=== PATIENT | male | born 1965 | race Caucasian/White ===

== ENCOUNTER 2022-06-21 15:25 | Outpatient (CLI) | payer OTHER, MEDICAID, SELFPAY ==
--- NOTE | 2022-06-21 15:30 | MR_ITS ---
[address] [address] Phone:?[phone] Fax:?[phone] Referring Physician Information: Akanksha Sutton [address] [facility] [address] Phone:?[phone] Fax:?[phone] Patient:Jailyn Neal D.O.B:?1965 Sex:?Male Phone:?[phone] [facility] MRN:[id number] Exam Date:?06/21/2022 ? EXAM: MRI of the RIGHT SHOULDER, without contrast CLINICAL HISTORY: Right shoulder pain. History of acromial clavicular joint separation. Evaluate for rotator cuff tear. COMPARISONS: None available. TECHNICAL: MRI sequences of the right shoulder: Axials: PD, T2 Coronals: PD, STIR, T2 Sagittals: PD, T2?SEDATION: None CONTRAST: None FINDINGS: Bones: No fracture or suspicious bone marrow signal abnormality. Coracoacromial arch: Acromion: No os acromiale. Type I-II acromion. Acromiohumeral space: The bony distance is unremarkable. Coracohumeral space: The bony distance is unremarkable. Acromioclavicular joint: Marked degenerative changes with marked inferior osteophytosis/hypertrophy. Marked irregularity of the acromioclavicular ligament likely reflects sequela of chronic sprain/tear injury. There is chronic fracture deformity of the distal clavicle with an ununited fracture fragment. No substantial widening of the acromioclavicular joint currently. Coracoclavicular ligament: Irregularity of the coracoclavicular ligament and spurring of the distal clavicle and coracoid at the coracoclavicular ligament attachments are findings consistent with sequelae of chronic tear/sprain injury. No substantial superior subluxation of the distal clavicle currently. Rotator cuff muscles/tendons: Supraspinatus: 2.3 cm in AP dimension by 1.9 cm in transverse dimension near full-thickness bursal sided tear of the supraspinatus tendon contacts the cortical insertional surface and is superimposed upon mild supraspinatus tendinopathy. No atrophy of the supraspinatus muscle. Infraspinatus: Interstitial delamination and moderate tendinopathy of the infraspinatus tendon. No atrophy of the infraspinatus muscle. Teres minor: The teres minor tendon and muscle are intact. Subscapularis: Mild tendinopathy of the superior portion of the subscapularis tendon insertion best seen on sagittal series 9 image 12 and axial series 3.1 image 21. No atrophy of the subscapularis muscle. Labrum: Fraying and ill-defined tearing of the posterosuperior, inferior, and anteroinferior portions of the labrum. Proximal biceps tendon, long head and short heads: Slitlike split longitudinal intrasubstance/interstitial tear within the biceps labral anchor best seen on coronal series 4 images 11 and 12. Otherwise, the long head of the biceps tendon is intact. The short is intact. Glenohumeral joint: Trace glenohumeral joint effusion. 2.0 cm craniocaudad dimension by 0.7 cm in AP dimension area of grade 3 and 4 chondral loss over the anterior and anteroinferior portions of the glenoid with a couple of small associated degenerative subchondral cysts. No convincing evidence of capsular edema or thickening although evaluation is suboptimal because of lack of joint distention. Bursae: Subacromial/subdeltoid: No convincing subacromial bursal thickening/bursitis. Subcoracoid: No convincing subcoracoid bursal thickening/bursitis. IMPRESSION: 1. 2.3 x 1.9 cm near full-thickness bursal sided tear of the supraspinatus tendon contacts the cortical insertional surface and is superimposed upon mild supraspinatus tendinopathy. 2. Interstitial delamination and moderate tendinopathy of the infraspinatus tendon. 3. Mild tendinopathy of the superior portion of the subscapularis tendon insertion. 4. No atrophy of the rotator cuff musculature. 5. Slitlike split longitudinal intrasubstance/interstitial tear within the biceps labral anchor. Otherwise, the long head of the biceps tendon is intact. 6. Marked acromioclavicular joint osteophytosis with marked inferior osteophytosis/hypertrophy. Chronic fracture deformity of the distal clavicle with an ununited fracture fragment. In addition, sequelae of chronic sprain/tear injuries of the acromioclavicular ligament and coracoclavicular ligament. 7. 2.0 x 0.7 cm area of grade 3 and 4 chondral loss over the anterior and anteroinferior portions of the glenoid with a couple of small associated degenerative subchondral cysts. Fraying and ill-defined tearing of the posterosuperior, inferior, and anteroinferior portions of the labrum. 8. Trace glenohumeral joint effusion. RCB Electronically signed on 06/22/2022 6:43:00 AM by Fredi Osullivan M.D.
== END 2022-06-21 15:26 | disposition home or self-care (01) ==
PROVIDERS: PCP Family Medicine; Visit Provider Physician Assistant Surgical
DX: M25.511 Pain in right shoulder (principal); M75.101 Unspecified rotator cuff tear or rupture of right shoulder, not specified as traumatic; S43.401A Unspecified sprain of right shoulder joint, initial encounter; M25.411 Effusion, right shoulder
CPT/HCPCS: 73221

== ENCOUNTER 2022-10-13 18:43 | Emergency (ER) | payer OTHER, MEDICAID, SELFPAY ==
[2022-10-13 18:44] VITALS: BP 179/96; PULSE 101; RESP 18; TEMP 36.9; O2SAT 95; BMI 26.5
--- NOTE | 2022-10-13 19:25 | CRLHL7_ITS ---
For Patients: As a result of the Cures Act, medical imaging exams and procedure reports are released immediately into your electronic medical record. You may view this report before your referring provider. If you have questions, please contact your health care provider. HISTORY: Evaluate finger for metallic foreign body. COMPARISON: None available. FINDINGS: The right 3rd finger is examined with PA, lateral, and oblique views. The technologist indicates concern in the dorsal radial aspect of the tip of the finger, in the area of the mid and distal shaft of the distal phalanx. There is no sign of any metallic or other radiopaque foreign body in this region. There is mild soft tissue swelling in this region. There is no sign of fracture or dislocation. The soft tissues elsewhere are normal in appearance without sign of radio-opaque foreign body. No degenerative disease is seen. IMPRESSION: Mild swelling of the distal 3rd finger with no sign of any metallic or radiopaque foreign body or associated osseous injury. Dictated by Alan Longoria MD @ 10/13/2022 8:18:49 PM (Electronically Signed)
--- NOTE | 2022-10-13 21:56 | ED.GENADULT ---
HPI - General Adult General Date Seen: 10/13/22 Chief complaint: Extremity Pain/Injury, Upper Stated complaint: Finger Infection Time Seen by Provider: 10/13/22 19:07 Source: patient, family and RN notes reviewed Mode of arrival: ambulatory Limitations: no limitations History of Present Illness HPI narrative: Patient presents to the emergency room with 3 days of increasing swelling and pain in the distal aspect of right 3rd finger near the fingernail. 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 He has not had any fever or chills. He has not taken any medication for the discomfort. He notes no history of MRSA. Related Data Home Medications Medication Instructions Recorded Confirmed sildenafil 100 mg tablet 100 mg PO ONCE PRN 06/09/22 10/11/22 Allergies Allergy/AdvReac Type Severity Reaction Status Date / Time No Known Allergies Allergy Unknown Verified 10/13/22 18:48 Review of Systems Narrative: Denies fever chills, loss of sensation,. PFSH PFSH Surgical History No pertinent past surgical history Social History Smoking Status: Current every day smoker Little interest or pleasure in doing things: not at all Feeling down, depressed, or hopeless: not at all Exam Narrative: Exam Narrative: Patient is noted to be alert and oriented and not in any acute distress. Examination of the distal aspect of the 3rd finger shows a semilunar area of skin that is light and fluctuant this is measuring approximately 10 x 4 mm. This is right at the edge of the proximal nail center lateral aspect. Patient has no significant swelling of the fat pad. There is some erythema and warmth associated with this. Patient is able to flex and extend his finger. He is otherwise nontoxic in appearance. Procedure note I did discuss with patient treatment which would include drainage of this area. He elects to do this without anesthesia. I do a Betadine prep to this area and with a small scalp whole make a 4 mm incision to this area a copious amount of purulent fluid that is not malodorous is drain. We do irrigate this area and I do take a small amount of the tissue away so that this wound may continue to drain. Patient notes relief of discomfort with this. Const: Vital Signs, click to edit/add: Vital Signs - 24 hr 10/13/22 18:44 Temperature 98.5 F Pulse Rate [Pulse Oximeter] 101 H Respiratory Rate 18 Blood Pressure [Ri ght Upper Arm] 179/96 H Pulse Oximetry 95 Oxygen Delivery Me thod Room Air Documenting provider has reviewed patient's vital signs: yes Course Vital Signs Vital signs: Initial Vital Signs Temperature 98.5 F 10/13/22 18:44 Temperature Source Temporal Artery Scan 10/13/22 18:44 Pulse Rate 101 H 10/13/22 18:44 Pulse Rhythm 10/13/22 18:44 Pulse Strength 3+ Normal 10/13/22 18:44 Respiratory Rate 18 10/13/22 18:44 Blood Pressure 179/96 H 10/13/22 18:44 Blood Pressure Mean 123 10/13/22 18:44 Blood Pressure Position Sitting 10/13/22 18:44 Pulse Oximetry 95 10/13/22 18:44 Oxygen Delivery Method 10/13/22 18:44 Vital Signs Temperature 98.5 F 10/13/22 18:44 Pulse Rate 101 H 10/13/22 18:44 Respiratory Rate 18 10/13/22 18:44 Blood Pressure 179/96 H 10/13/22 18:44 Pulse Oximetry 95 10/13/22 18:44 Oxygen Delivery Method 10/13/22 18:44 Temperature 98.5 F 10/13/22 18:44 Pulse Rate 101 H 10/13/22 18:44 Respiratory Rate 18 10/13/22 18:44 Blood Pressure 179/96 H 10/13/22 18:44 Pulse Oximetry 95 10/13/22 18:44 Oxygen Delivery Method 10/13/22 18:44 Medical Decision Making MDM Narrative Medical decision making narrative: 1. Paronchia-wound culture complication and wound is drained. Doxycycline 100 mg p.o. b.i.d. x7 days given while we are waiting wound culture. Tylenol or ibuprofen as needed for pain. Suggest soaking this twice daily. Seek medical attention for worsening symptoms especially fever. 2. Disposition-home at this time. Tetanus 2017 and therefore up-to-date Discharge Plan Discharge Clinical Impression: Paronychia Patient Disposition: Home, Self-Care Condition: Improved Additional Instructions: 1. Doxycycline as your antibiotic. We will await the culture and change medication is needed. 2. Tylenol or ibuprofen for pain 3. Soak twice daily. Seek medical attention for worsening symptoms. 4. Return as needed. Prescriptions: No Action sildenafil 100 mg tablet 100 mg PO ONCE PRN Rx Instructions: TAKE 1 TAB 1 HR PRIOR TO INTERCOURSE Follow Up/Referrals: Ld Pena MD [Primary Care Provider] - Stand Alone Forms: Virtual 3-D Display for Smartphones Info Instructions
== END 2022-10-13 20:39 | disposition home or self-care (01) ==
PROVIDERS: Emergency Provider Family Medicine; PCP Family Medicine
DX: L03.011 Cellulitis of right finger (principal)
CPT/HCPCS: 10060; 73140; 87070; 87186; 99283; 99284

== ENCOUNTER 2022-10-25 06:55 | Day surgery (SDC) | payer OTHER, SELFPAY ==
[2022-10-25] VITALS (13 sets, daily range): BP systolic 97–128; BP diastolic 55–87; PULSE 53–70; RESP 16; TEMP 36.3–36.9; O2SAT 93–98; BMI 25.7
[2022-10-25] MEDS: CEFAZOLIN 2 GM in 0.9 % SODIUM CHLORIDE Mini-bag 100 ML IVPB (07:12)
[2022-10-25] MEDS: LACTATED RINGERS 1000 ML 1,000 ML 100 ML IV ×2 (07:15→08:58)
[2022-10-25] MEDS: fentaNYL 100 MCG/2 ML inj IVP (07:48)
[2022-10-25] MEDS: MIDAZOLAM HCL 1 MG/ML inj IVP (07:48)
--- NOTE | 2022-10-25 07:52 | W.ANESCHARGE ---
Anesthesia Charges Start Date/Time Anesthesia Start Date: 10/25/22 Anesthesia Start Time: 08:30 Stop Date/Time Anesthesia Stop Date: 10/25/22 Anesthesia Stop Time: 10:42
--- NOTE | 2022-10-25 07:52 | W.PM.NB ---
Nerve Block Nerve Block Time Seen by Provider: 07:50 Date Seen: 10/25/22 Type of block requested by surgeon for post-operative analgesia: supraclavicular Side: right Time out performed: Yes Verification of patient name: Yes Verification of date of : Yes Site marking: site marked Name of person performing procedure: Felix Continuous monitoring Was continuous monitoring of O2 sat, B/P, air sampling and monitoring, recorded every 15 minutes?: Yes Procedure Checklist: sterile prep, needles and gloves Ultrasound guided. Images saved: Yes Medications given in 5ml increments after negative aspiration: Ropivicaine %: 0.5 mL: 20 Needle gauge: 22 Decadron (mg): 10 Precedex (mcg): 25 Patient tolerated procedure well: Yes Block Charges Block Charge (with Pro Fee): Brachial Plexus Use of Ultrasound Machine for Block: Yes- US Guidance/pain block
[2022-10-25] MEDS: SODIUM CHLORIDE 0.9 % (FLUSH) 10 ML SYRINGE IVF (07:53)
--- NOTE | 2022-10-25 07:54 | SUR.PREOP ---
TIME?OUT:?0747 PT/RN/MDA?VERIFICATION?OF?SURGICAL?SITE,?PROCEDURE,?AND?CONSENT OBTAINED?PRIOR?TO?INVASIVE?PROCEDURE.
[2022-10-25] MEDS: EPINEPHrine 1 MG in SODIUM CHLORIDE IRRIG SOLUTION 3,000 ML 9003 MG IRRIGATION ×5 (09:02→10:12)
--- NOTE | 2022-10-25 10:29 | PM.ORPRC ---
Procedure Note Date of procedure: 10/25/22 Procedure: PREOPERATIVE DIAGNOSES: 1. Right shoulder rotator cuff tear full-thickness supraspinatus 2. Right shoulder AC degenerative joint disease, primary, moderate-severe 3. Right shoulder long head biceps origin tearing 4. Right shoulder subacromial impingement syndrome. POSTOPERATIVE DIAGNOSES: 1. Right shoulder rotator cuff tear full-thickness supraspinatus 2. Right shoulder AC degenerative joint disease, primary, moderate-severe 3. Right shoulder long head biceps origin tearing 4. Right shoulder anterior degenerative labral fraying tearing 5. 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 Right shoulder subacromial impingement syndrome. NAME OF OPERATION: 1. Right shoulder arthroscopic rotator cuff repair -full-thicknes, s full breadth supraspinatus 2. Right shoulder arthroscopic distal clavicle excision 3. Right shoulder arthroscopic limited glenohumeral debridement 4. Right shoulder arthroscopic bursectomy, subacromial decompression/partial acromioplasty. SURGEON: Tyrone Moore MD MANAGER DOMESTIC: Bam Cooney PA-C. Of note, a skilled assistant press operator offset was critical for this case to aide in patient positioning, suture manipulation, arm positioning, instrument positioning, and closure. ANESTHESIA: General plus preoperative supraclavicular block. EBL: Less than 50 mL IMPLANTS: Arthrex 2.6 mm knotless FiberTak RC (x2); 5.5 mm BioComposite SwiveLock suture anchor (x2) COMPLICATIONS: None evident INDICATIONS: The patient is a pleasant, 57-year-old male who has experienced right shoulder pain that has been increasing in recent time. Physical exam and imaging were consistent with a rotator cuff tear. Given their findings, as well as the weakness and pain, and inadequate response to nonoperative management, recommendation was made for surgery. FINDINGS: Exam under anesthesia revealed stable shoulder with excellent range of motion. The diagnostic arthroscopy revealed healthy chondral surfaces of the humerus. Grade 4 chondromalacia anterior central glenoid. The Subscapularis tendon was intact and with a healthy attachment. The long head of the biceps tendon was intact and without splitting or tearing that could be appreciated throughout the intra-articular portion including the part that could be probed and brought into the joint. The origin the biceps had some mild fraying but appeared to still be a robust attachment. The superior rotator cuff tendon was found to be torn full thickness at the anterior margin measuring approximately 12 mm in greatest dimension with minimal retraction. The labrum was degeneratively frayed in the anterior and superior aspects. No loose bodies were identified within the pouch or subscapularis recess. PROCEDURE: Following a thorough discussion of risks, benefits, and alternatives, consent was obtained and the right shoulder was marked. The patient was brought to the operating room and placed supine on the operating table. Induction of anesthesia was completed after preoperative supraclavicular block was administered in preop holding. Appropriate time out was performed identifying proper patient, site, and procedure. 2 g IV Ancef was administered within 1 hour of incision preoperatively. The right upper extremity was prepped and draped in the appropriate sterile fashion using ChloraPrep prep. This was after the patient was positioned in the beach chair with their head in neutral alignment and all bony prominences well padded. The shoulder was insufflated with 20mL of normal saline via an 18g spinal needle from a posterior approach. An 11 blade skin incision allowed a blunt trochar to be inserted and diagnostic arthroscopy to be performed with the findings as noted above. An anterior portal was established with an outside in technique. This allowed the probe to be inserted and confirm the diagnostic arthroscopic findings. The shaver was then inserted and allowed debridement of the anterior and superior labrum. Following this, the upper border subscapularis was probed and found to be stable Thereafter, the subacromial space was entered. Here, a complete bursectomy and partial acromioplasty/subacromial decompression was performed with a combination of radiofrequency ablator, the shaver, and a 5.5 mm bur. Additionally, distal clavicle excision was performed with the bur. 8 mm of distal clavicle was resected based on the with of our bur. Further inspection of the supraspinatus and infraspinatus rotator cuff was performed. This identified the tear as noted above. The margins of the tear were debrided, and the greater tuberosity was debrided with a combination of the apollo cautery, shaver, and bur on reverse setting. After gentle decortication, a speed bridge configuration with a medial dereck engaged. 2 medial anchors were placed and the sutures were passed with a fiber link. The knotless mechanism was engaged for each anchor for the medial dereck and the tails cut after completing the SpeedBridge for final tension. A tail from each of the medial row anchor suture tapes were then brought to a lateral row anchor along with 1 of the tails from the medial dereck. Excellent reapproximation of the tissue to the greater tuberosity was achieved with broad footprint compression. Prior to anchor crew car driver removal, the eyelet sutures were tugged on for each anchor and found that the anchor had excellent stability within the bone. The shoulder was placed through range of motion and found to be stable. The rotator cuff was re-probed and found to be stable. Instruments were removed. Excess fluid was drained, closure performed with 4-0 Monocryl and Steri-Strips. Dressings were applied. Sling was applied. The patient was awoken from anesthesia and transferred to the PACU in stable condition. A skilled assistant press operator offset was critical for this case to aid in patient positioning, limb positioning, skill to manipulate arthroscopic instruments and camera, suture management, patient safety, and closure. PLAN: 1. Elbow, forearm, wrist and digit range of motion as tolerated. 2. Encouraged ice. 3. Percocet for pain as needed. 4. Sling at all times except for ROM and showering. 5. Follow up with PA visit in 1-2 weeks for wound check. Initiate physical therapy following that visit for passive range of motion. Initiate active assisted range of motion at 3-4 weeks. May do pendulums now.
--- NOTE | 2022-10-25 10:43 | W.ANESCHARGE ---
Anesthesia Charges Start Date/Time Anesthesia Start Date: 10/25/22 Anesthesia Start Time: 08:30 Stop Date/Time Anesthesia Stop Date: 10/25/22 Anesthesia Stop Time: 10:42
== END 2022-10-25 12:08 | disposition home or self-care (01) ==
PROVIDERS: PCP Family Medicine; Visit Provider Orthopaedic Surgery Sports Medicine
PROC: (CPT 29805; principal; 2022-10-25 08:30)
DX: M75.121 Complete rotator cuff tear or rupture of right shoulder, not specified as traumatic (principal); M19.011 Primary osteoarthritis, right shoulder; S46.111A Strain of muscle, fascia and tendon of long head of biceps, right arm, initial encounter; S43.431A Superior glenoid labrum lesion of right shoulder, initial encounter; M94.211 Chondromalacia, right shoulder; M75.41 Impingement syndrome of right shoulder
CPT/HCPCS: 29827; 29826; 29824; 29822; 01400; 01630; 64415; 76942; C1713; J0171; J0330; J0690; J1100; J1170; J2250; J2405; J2704; J2795; J3010; J7120; L3670

== ENCOUNTER 2022-12-10 08:44 | Outpatient (CLI) | payer OTHER, SELFPAY | END 2022-12-10 08:45 | disposition home or self-care (01) | PROVIDERS: PCP Family Medicine; Referring Provider Family Medicine; Visit Provider Family Medicine | DX: Z13.1 Encounter for screening for diabetes mellitus (principal); Z12.5 Encounter for screening for malignant neoplasm of prostate; Z13.6 Encounter for screening for cardiovascular disorders | CPT/HCPCS: 80061; 82947; 84153 ==

== ENCOUNTER 2023-05-28 15:22 | Emergency (ER) | payer BC, SELFPAY ==
[2023-05-28 15:42] VITALS: BP 204/93; PULSE 61; RESP 18; TEMP 36.4; O2SAT 98; BMI 28.7
--- NOTE | 2023-05-28 17:42 | ED_ITS ---
HPI - General Adult General Date Seen: 05/28/23 Chief complaint: Dental/Oral/Mouth Injury/Pain Stated complaint: LL molar pain, swollen gland Time Seen by Provider: 05/28/23 17:02 History of Present Illness HPI narrative: This is a pleasant 57-year-old man accompanied to the ER today by his family with concern for a dental infection from his left mandibular 2nd molar (tooth number 18). He has a past medical history of tobacco use, opiate use disorder on Suboxone, but no history of malignancy, chemotherapy, immunosuppression, or diabetes. He has had extractions of multiple other teeth in the past. He has had some pain in that molar for the past few weeks. Has not been too severe. His left mandible and that tooth began to be more painful yesterday. No particular reason why. No injury. No trauma. Overnight also began to be swollen around the gums there and a little bit of swelling into the lower side of his left cheek and under his left jaw today. He is not febrile. No trouble opening or closing his mouth. He is able to chew. He is able to swallow. No trouble breathing. He called his dentist and his dentist told to come here to the ER today. He would like to get on some antibiotics. He does not want opiates because of his history of addiction and his current Suboxone maintenance therapy. Related Data Home Medications Medication Instructions Recorded Confirmed buprenorphine 8 mg-naloxone 2 mg 10 mg sublingual BID 05/19/23 05/28/23 sublingual film (Suboxone) Previous Rx's Medication Instructions Recorded sildenafil 100 mg tablet 100 mg PO ONCE PRN sexual activity 12/13/22 #30 tabs ibuprofen 800 mg tablet 800 mg PO TID PRN pain #60 tabs 04/20/23 clindamycin HCl 300 mg capsule 300 mg PO TID #30 caps 05/28/23 Allergies Allergy/AdvReac Type Severity Reaction Status Date / Time No Known Allergies Allergy Unknown Verified 05/23/23 13:04 [facility] Medical History (Updated 05/28/23 @ 17:41 by Enrique Spicer MD) Bilateral hip pain ?M25.551 - Pain in right hip (ICD-10) ?M25.552 - Pain in left hip (ICD-10) Onychomycosis ?B35.1 - Tinea unguium (ICD-10) Traumatic tear of supraspinatus tendon of right shoulder ?S46.811A - Strain of other muscles, fascia and tendons at shoulder and upper arm level, right arm, initial encounter (ICD-10) Scapular dysfunction ?M89.9 - Disorder of bone, unspecified (ICD-10) Surgical History (Updated 04/28/23 @ 13:36 by Kelly Hung ~ [facility], [facility]) Status post arthroscopy of right shoulder (10/25/22) ?Z98.890 - Other specified postprocedural states (ICD-10) Social History (Reviewed 05/19/23 @ 12:56 by Kelly Hung ~ [facility], [facility]) Narrative: girlfriend-Chandrika Smoking Status: Current every day smoker What tobacco products do you use: cigarettes Do you use any of these nicotine containing products: None Second hand tobacco smoke exposure: No How often do you have a drink containing alcohol: never AUDIT-C Alcohol total score: 0 Non-prescribed substance use: denies use Caffeine: No Little interest or pleasure in doing things: not at all Feeling down, depressed, or hopeless: not at all Exam Narrative: Exam Narrative: Constitutional: Appears well-developed and well-nourished. Alert. Conversant. Non toxic. HENT: Head: Atraumatic. Nose: Nose normal. Mouth/Throat: Oral mucosa is clear and moist. Tongue normal. Uvula midline. Pharynx normal. no trismus. Pharynx normal. Tonsils symmetric. No tonsillar enlargement, erythema, or exudate. He does have multiple previous dental extra ctions. His wisdom teeth are absent. His premolar and the front molar in his left axillary are absent. Second molar is present. There are dental caries. Is a subtle amount of erythema hour of the gums on the left lower jaw but no definite visible or palpable gingival abscess. No submandibular swelling or fullness. No palpable buccal space abscess. He has subtle swelling of the left cheek and a little bit of swelling underneath the corner of his left jaw. Not consistent with parotitis. Suspect probably facial cellulitis from odontogenic infection. No definite abscess. At this point, not Amando's angina. Eyes: Conjunctivae normal. EOM normal. Pupils equal, round, and reactive to light. No scleral icterus. Neck: Normal range of motion. Neck supple. No tracheal deviation present. Cardiovascular: Normal rate, regular rhythm. No gallop. No friction rub. No murmur heard. Pulmonary/Chest: Effort normal. No stridor. No respiratory distress. No wheezes. No rales. No rhonchi . RUE: Normal range of motion. No tenderness. No deformity LUE: Normal range of motion. No tenderness. No deformity RLE: Normal range of motion. No edema. No tenderness. No deformity LLE: Normal range of motion. No edema. No tenderness. No deformity Lymph: No cervical adenopathy. Neurological: Alert and oriented to person, place, and time. Normal strength. CN II-VII intact. No sensory deficit. GCS eye subscore is 4. GCS verbal subscore is 5. GCS motor subscore is 6. Normal coordination Skin: Skin is warm and dry. No rash noted. No pallor. Normal capillary refill. Psychiatric: Normal mood. Normal affect. Const: Vital Signs, click to edit/add: Vital Signs - 24 hr 05/28/23 15:42 Temperature 97.6 F Pulse Rate [Right Pulse Oximeter] 61 Respiratory Rate 18 Blood Pressure [Ri ght Upper Arm] 204/93 H Pulse Oximetry 98 Oxygen Delivery Me thod Room Air Course Vital Signs Vital signs: Initial Vital Signs Temperature 97.6 F 05/28/23 15:42 Temperature Source Temporal Artery Scan 05/28/23 15:42 Pulse Rate 61 05/28/23 15:42 Respiratory Rate 18 05/28/23 15:42 Blood Pressure 204/93 H 05/28/23 15:42 Blood Pressure Mean 130 H 05/28/23 15:42 Blood Pressure Position Sitting 05/28/23 15:42 Pulse Oximetry 98 05/28/23 15:42 Oxygen Delivery Method Room Air 05/28/23 15:42 Vital Signs Temperature 97.6 F 05/28/23 15:42 Pulse Rate 61 05/28/23 15:42 Respiratory Rate 18 05/28/23 15:42 Blood Pressure 204/93 H 05/28/23 15:42 Pulse Oximetry 98 05/28/23 15:42 Oxygen Delivery Method Room Air 05/28/23 15:42 Temperature 97.6 F 05/28/23 15:42 Pulse Rate 61 05/28/23 15:42 Respiratory Rate 18 05/28/23 15:42 Blood Pressure 204/93 H 05/28/23 15:42 Pulse Oximetry 98 05/28/23 15:42 Oxygen Delivery Method Room Air 05/28/23 15:42 Medical Decision Making MDM Narrative Medical decision making narrative: This patient presents with a tooth ache. The differential diagnosis includes: cracked tooth syndrome, pulpitis, sub-apical abscess, amongst others. I do think this is probably an odontogenic infection with an associated facial cellulitis infecting the lower portion of his left cheek and a little bit of the soft tissue around the body of the mandible on the left side. There is no abscess detected around the tooth amenable to incision and drainage. There is no evidence of buccinator/canine space infections, significant facial swelling, or Amando's angina. There are no posterior pharyngeal space infections detected. Suspect pulpitis. Treatment with NSAID, antibiotics. We will avoid opiates because of previous Ob UD and current Suboxone maintenance therapy. Discussed possible dental block but will hold off for now due to the discomfort of the procedure and the only temporary benefit. Follow up with a dentist/board filler in the coming days is indicated for further work up and treatment. Instructions for return to the ER were reviewed with the patient. Clindamycin 300 mg t.i.d. for 10 days. Precautions for return to the ER reviewed. Discharge Plan Discharge Clinical Impression: Cellulitis of face, Pain, dental Patient Disposition: Home, Self-Care Condition: Stable Instructions: Cellulitis (ED), Toothache (ED) Additional Instructions: Please recheck with your dentist by Tuesday. If you have any worsening swelling, trouble moving your tongue, trouble breathing, swelling of your chin, high fever, or any concerns, come back to the ER right away to be recheck. Prescriptions: New clindamycin HCl 300 mg capsule 300 mg PO TID Qty: 30 0RF No Action ibuprofen 800 mg tablet 800 mg PO TID PRN (Reason: pain) Qty: 60 3RF sildenafil 100 mg tablet 100 mg PO ONCE PRN (Reason: sexual activity) Qty: 30 8RF Rx Instructions: TAKE 1 TAB 1 HR PRIOR TO INTERCOURSE buprenorphine-naloxone [Suboxone] 8-2 mg film 10 mg sublingual BID Follow Up/Referrals: Ld Pena MD [Primary Care Provider] - Stand Alone Forms: [employer] Info Instructions
[2023-05-28 17:46] VITALS: BP 193/74; PULSE 61; RESP 18; TEMP 36.4
== END 2023-05-28 17:46 | disposition home or self-care (01) ==
LOC: ED 17:43
PROVIDERS: Emergency Provider Emergency Medicine; PCP Family Medicine
DX: L03.211 Cellulitis of face (principal); K08.89 Other specified disorders of teeth and supporting structures
CPT/HCPCS: 99283; 99284

== ENCOUNTER 2023-05-29 05:11 | Emergency (ER) | payer BC, SELFPAY ==
[2023-05-29 05:17] VITALS: BP 121/74; PULSE 78; RESP 16; RESP 18; TEMP 36.7; O2SAT 99; BMI 28.7
--- NOTE | 2023-05-29 05:23 | ED_ITS ---
HPI - Dental/Oral General Chief complaint: Jaw Injury/Pain Stated complaint: swollen jaw Time Seen by Provider: 05/29/23 05:15 History of Present Illness HPI Narrative: Patient is a 58-year-old gentleman who was in yesterday for severe dental playing placed on oral clindamycin. His pain is better be has developed some swelling on the left side of his mandible. He has had no fevers no chills no night sweats no signs of sepsis. Again the discomfort is improved. Patient's treatment is limit antibiotics and anti-inflammatories due to history of substance abuse disorder and his use of Suboxone. Related Data Home Medications Medication Instructions Recorded Confirmed buprenorphine 8 mg-naloxone 2 mg 10 mg sublingual BID 05/19/23 05/29/23 sublingual film (Suboxone) docusate sodium 100 mg capsule 100 mg PO BID 05/29/23 05/29/23 Previous Rx's Medication Instructions Recorded sildenafil 100 mg tablet 100 mg PO ONCE PRN sexual activity 12/13/22 #30 tabs ibuprofen 800 mg tablet 800 mg PO TID PRN pain #60 tabs 04/20/23 clindamycin HCl 300 mg capsule 300 mg PO TID #30 caps 05/28/23 Allergies Allergy/AdvReac Type Severity Reaction Status Date / Time No Known Allergies Allergy Unknown Verified 05/29/23 05:20 Review of Systems Status of ROS: Reports: 10 or more systems reviewed and unremarkable except as noted in History and below [facility] Medical History Bilateral hip pain ?M25.551 - Pain in right hip (ICD-10) ?M25.552 - Pain in left hip (ICD-10) Onychomycosis ?B35.1 - Tinea unguium (ICD-10) Traumatic tear of supraspinatus tendon of right shoulder ?S46.811A - Strain of other muscles, fascia and tendons at shoulder and upper arm level, right arm, initial encounter (ICD-10) Scapular dysfunction ?M89.9 - Disorder of bone, unspecified (ICD-10) Surgical History Status post arthroscopy of right shoulder (10/25/22) ?Z98.890 - Other specified postprocedural states (ICD-10) Social History Narrative: girlfriend-Chandrika Smoking Status: Current every day smoker What tobacco products do you use: cigarettes Do you use any of these nicotine containing products: None Second hand tobacco smoke exposure: No How often do you have a drink containing alcohol: never AUDIT-C Alcohol total score: 0 Non-prescribed substance use: denies use Caffeine: No Little interest or pleasure in doing things: not at all Feeling down, depressed, or hopeless: not at all Exam Narrative: Exam Narrative: EXAM GENERAL: Patient appears comfortable and well. Swelling noted along left side of the mandible approximately 3 x 3 cm in diameter. EYES: No scleral icterus. LYMPH: No supraclavicular or cervical lymphadenopathy. SKIN: Visible skin seen during exam normal or with benign process only. EXT: No dependent lower extremity pedal edema. HEART: Regular rate and rhythm with no murmurs, rubs, or gallops. LUNGS: Clear to auscultation bilaterally with no crackles or wheezes. ABD: Soft, non tender, non distended. PSYCH: Good eye contact, speech is not pressured. Const: Vital Signs, click to edit/add: Vital Signs - 24 hr 05/29/23 05:17 Temperature 98.1 F Pulse Rate [Right Pulse Oximeter] 78 Respiratory Rate 18 Blood Pressure [Ri ght Upper Arm] 121/74 Pulse Oximetry 99 Oxygen Delivery Me thod Room Air Course Course ED Course: Patient seen and examined. Vital Signs Vital signs: Initial Vital Signs Temperature 98.1 F 05/29/23 05:17 Temperature Source Temporal Artery Scan 05/29/23 05:17 Pulse Rate 78 05/29/23 05:17 Respiratory Rate 18 05/29/23 05:17 Blood Pressure 121/74 05/29/23 05:17 Blood Pressure Mean 89 05/29/23 05:17 Blood Pressure Position Sitting 05/29/23 05:17 Pulse Oximetry 99 05/29/23 05:17 Oxygen Delivery Method Room Air 05/29/23 05:17 Vital Signs Temperature 98.1 F 05/29/23 05:17 Pulse Rate 78 05/29/23 05:17 Respiratory Rate 18 05/29/23 05:17 Blood Pressure 121/74 05/29/23 05:17 Pulse Oximetry 99 05/29/23 05:17 Oxygen Delivery Method Room Air 05/29/23 05:17 Temperature 98.1 F 05/29/23 05:17 Pulse Rate 78 05/29/23 05:17 Respiratory Rate 18 05/29/23 05:17 Blood Pressure 121/74 05/29/23 05:17 Pulse Oximetry 99 05/29/23 05:17 Oxygen Delivery Method Room Air 05/29/23 05:17 MDM - Dental/Oral MDM Narrative Medical decision making narrative: Patient is a 58-year-old gentleman who was placed on oral clindamycin yesterday for a dental infection who is improving. He is concerned that there is some moderate swelling. He has no compromise of his airway. No signs of sepsis. I did elect to given 1 g Rocephin help him with his infection and continue his clindamycin with outpatient follow-up with his dentist. Differential Diagnosis Differential diagnosis: Likely gingival abscess, dental caries, toothache, dental abscess, fracture of tooth and aphthous ulcer Discharge Plan Discharge Clinical Impression: Dental infection Patient Disposition: Home, Self-Care Condition: Stable Instructions: Dental Abscess (ED) Additional Instructions: Tylenol/Motrin for pain Continue clindamycin Warm compresses Follow-up with your dentist. Activity Level: No Restrictions Discharge Diet: Regular Prescriptions: No Action ibuprofen 800 mg tablet 800 mg PO TID PRN (Reason: pain) Qty: 60 3RF sildenafil 100 mg tablet 100 mg PO ONCE PRN (Reason: sexual activity) Qty: 30 8RF Rx Instructions: TAKE 1 TAB 1 HR PRIOR TO INTERCOURSE buprenorphine-naloxone [Suboxone] 8-2 mg film 10 mg sublingual BID docusate sodium 100 mg capsule 100 mg PO BID clindamycin HCl 300 mg capsule 300 mg PO TID Qty: 30 0RF Follow Up/Referrals: Ld Pena MD [Primary Care Provider] - Stand Alone Forms: [employer] Info Instructions
[2023-05-29] MEDS: LIDOCAINE 1% 5 ml (pf) 5 ML VIAL 2.1 ML IM (05:29)
[2023-05-29] MEDS: cefTRIAXone 1 GM VIAL IM (05:29)
[2023-05-29 06:02] VITALS: BP 118/78; PULSE 81; RESP 18; TEMP 36.9; O2SAT 99
[2023-05-29 06:07] VITALS: BP 118/78; PULSE 81; RESP 18; TEMP 36.9
== END 2023-05-29 06:08 | disposition home or self-care (01) ==
LOC: ED 05:31
PROVIDERS: Emergency Provider Internal Medicine; PCP Family Medicine
DX: K04.7 Periapical abscess without sinus (principal)
CPT/HCPCS: 96372; 99283; J0696

== ENCOUNTER 2023-06-25 14:01 | Outpatient (CLI) | payer BC, SELFPAY | END 2023-06-25 14:02 | disposition home or self-care (01) | LOC: LAB 14:03 | PROVIDERS: PCP Family Medicine; Visit Provider Orthopaedic Surgery Sports Medicine | DX: Z01.818 Encounter for other preprocedural examination (principal) | CPT/HCPCS: 36415; 86850; 86900; 86901 ==

== ENCOUNTER 2023-06-27 10:31 | Day surgery (SDC) | payer BC, SELFPAY ==
[2023-06-27] VITALS (22 sets, daily range): BP systolic 87–137; BP diastolic 53–94; PULSE 50–75; RESP 12–18; TEMP 36–36.8; O2SAT 93–97; BMI 27.4
[2023-06-27] MEDS: LACTATED RINGERS 1000 ML 1,000 ML 100 ML IV ×2 (10:50→15:08)
[2023-06-27] MEDS: SODIUM CHLORIDE 0.9 % (FLUSH) 10 ML SYRINGE IVF (11:28)
--- NOTE | 2023-06-27 12:01 | CRLHL7_ITS ---
For Patients: As a result of the Cures Act, medical imaging exams and procedure reports are released immediately into your electronic medical record. You may view this report before your referring provider. If you have questions, please contact your health care provider. Indication: s/p Total hip arthroplasty Technique: AP of hips and pelvis and lateral view right hip Findings/Impression: Hardware from a right total hip arthroplasty is in satisfactory position. Bone alignment is normal. No sign of acute fracture. Postop changes are within normal limits. Dictated by Konstantin Briones MD @ 06/28/2023 12:19:42 PM (Electronically Signed)
[2023-06-27] MEDS: OXYCODONE (CR) 10 MG TAB.ER.12H PO (12:47)
[2023-06-27] MEDS: ACETAMINOPHEN 500 MG TABLET 1000 MG PO ×2 (12:48→18:30)
--- NOTE | 2023-06-27 12:56 | CRLHL7_ITS ---
For Patients: As a result of the Cures Act, medical imaging exams and procedure reports are released immediately into your electronic medical record. You may view this report before your referring provider. If you have questions, please contact your health care provider. Indication: Hip replacement surgery Technique: AP hip fluoroscopic image. Fluoroscopy time 33.4 seconds. Findings/Impression: Hardware from a right total hip arthroplasty is in satisfactory position. Dictated by Konstantin Briones MD @ 06/27/2023 3:32:28 PM (Electronically Signed)
[2023-06-27] MEDS: MIDAZOLAM HCL 1 MG/ML inj IVP (13:10)
[2023-06-27] MEDS: fentaNYL 100 MCG/2 ML inj IVP (13:10)
--- NOTE | 2023-06-27 13:16 | SUR.PREOP ---
TIME?OUT:?1309 PT/RN/MDA?VERIFICATION?OF?SURGICAL?SITE,?PROCEDURE,?AND?CONSENT OBTAINED?PRIOR?TO?INVASIVE?PROCEDURE.
--- NOTE | 2023-06-27 13:18 | W.PM.NB ---
Nerve Block Nerve Block Time Seen by Provider: 13:10 Date Seen: 06/27/23 Type of block requested by surgeon for post-operative analgesia: ILEANA/LFCN Side: right Time out performed: Yes Verification of patient name: Yes Verification of date of : Yes Site marking: site marked Name of person performing procedure: Felix Continuous monitoring Was continuous monitoring of O2 sat, B/P, snow removal supervisor, recorded every 15 minutes?: Yes Procedure Checklist: sterile prep, needles and gloves Ultrasound guided. Images saved: Yes Medications given in 5ml increments after negative aspiration: Ropivicaine %: 0.5 mL: 30 Needle gauge: 20 Decadron (mg): 10 Precedex (mcg): 25 Patient tolerated procedure well: Yes Additional comments: Needle noted below psoas tendon needle noted adjacent to LFCN Block Charges Block Charge (with Pro Fee): Other Periph Nerve Block Use of Ultrasound Machine for Block: Yes- US Guidance/pain block
--- NOTE | 2023-06-27 13:19 | W.ANESCHARGE ---
Anesthesia Charges Start Date/Time Anesthesia Start Date: 06/27/23 Anesthesia Start Time: 13:30 Stop Date/Time Anesthesia Stop Date: 06/27/23 Anesthesia Stop Time: 15:25
[2023-06-27] MEDS: CEFAZOLIN 2 GM in 0.9 % SODIUM CHLORIDE Mini-bag 100 ML IVPB ×2 (13:51→20:49)
[2023-06-27] MEDS: TRANEXAMIC ACID 100 MG/ML INJ 1000 MG IV (13:52)
--- NOTE | 2023-06-27 15:24 | W.PM.H&PU ---
History & Physical Update History & Physical Update H&P Reviewed and patient assessed: No changes noted
--- NOTE | 2023-06-27 15:24 | PM.ORPRC ---
Procedure Note Date of procedure: 06/27/23 Procedure: PREOPERATIVE DIAGNOSIS: 1. Right hip osteoarthritis, severe, primary POSTOPERATIVE DIAGNOSIS: 1. Right hip osteoarthritis, severe, primary PROCEDURE: 1. Right total hip arthroplasty-anterior approach 2. 30519 - intraoperative fluoroscopy up to 1 hour. SURGEON: Tyrone Moore MD. CLOTH BLEACHING SUPERVISOR: Bam Cooney Pa-c; ADAM Bolton - Of note, a skilled social and human services assistant was critical for this case to aid in patient positioning, tissue retraction, limb manipulation/positioning, and closure. ANESTHESIA: Spinal anesthetic EBL: 300 mL IMPLANTS: DePuy J&J uncemented total hip Valentine cup size 52, hole eliminator, +4 neutral liner Actis stem, high offset, size 7 +1.5 mm ceramic 36 mm head COMPLICATIONS: None evident INDICATIONS: The patient is a pleasant 58-year-old male who has experienced severe right hip pain and difficulty bearing weight. Workup included x-rays which revealed severe osteoarthrosis in the hip. Given the deformity, the dysfunction, and the pain, as well as the failure of nonoperative management, recommendation was made for surgery. FINDINGS: Full-thickness chondral loss diffusely throughout the femoral head. Significant osteophytosis around the femoral head/neck junction and acetabulum. Moderate effusion upon entering the joint. No loose bodies evident. DESCRIPTION OF PROCEDURE: Following a thorough discussion of risks, benefits, and alternatives consent was obtained and the right hip was marked. The patient was brought to the operating room and placed supine on the operating table. Induction of anesthesia was undertaken. 2 g IV Ancef and 1 g tranexamic acid was administered within 1 hr of incision preoperatively. Proper time-out was performed identifying proper patient, site, procedure. The operative extremity was prepped and draped in the appropriate sterile fashion using ChloraPrep after the patient was positioned on the [place] table with head in neutral alignment and all bony prominences well padded. C-arm fluoroscopic imaging was utilized to confirm proper pelvis rotation and position, and to get true AP films of both the contralateral left, and the affected right hip. This is for comparison. A longitudinal incision was made starting approximately 1 cm distal to the ASIS, and 3-4 cm lateral. The incision was extended distally aiming toward the lateral border the patella. Sharp incision through skin and bovie cautery through the subcutaneous tissue allowed identification of the TFL fascia. This was sharply divided, and the fascia bluntly released from the muscle fibers as we dissected medial. Upon coming to the medial border, we were able to retract the TFL laterally, and penetrated the deeper fascia and identify the crossing circumflex vessels. These were ligated/cauterized. The rectus was elevated from the capsule, and retractors placed laterally and medially along the femoral neck to help with visualization of the capsule. We then performed an inverted T capsulotomy. The capsule was tagged for later repair. Retractors were placed inside the capsule. The femoral neck was visualized after releasing medially down to the lesser trochanter, along the saddle laterally, and up onto the acetabulum. The femoral neck cut was made in line with our preoperative templating. The head was removed in a single piece, and sized. We turned our attention to acetabular preparation. Initially, the labrum was resected from around the perimeter, the pulvinar was excised, allowing us to visualize the false wall. We started the reaming with a 43 mm reamer. This was medialized down to the true wall. We then enlarged our reamers sequentially up to one size less than the selected cup size. We trialed at the same size and found it to have an excellent fit. The selected cup was then opened, inserted, and impacted in line with the goal of 40? of abduction, and 20-25? of anteversion. This was confirmed on C-arm fluoroscopic imaging to be in the appropriate/goal position. Once the cup was placed we placed a hole eliminator and a liner consistent with preop planning. Attention was turned to the femoral preparation. The limb was extended, externally rotated, and adducted. The posteromedial capsule was released, as retractors were placed allowing excellent access to the proximal femur. Initially a box office agent was followed by canal finder followed by various broaches. We broached sequentially up to the size noted above, found it to have excellent rotational control, and trialing various heads and necks, revealed that appropriate neck offset, and the above noted head size provided the greatest stability, and restorationism of length, and offset. C-arm fluoroscopic imaging confirmed position of the stem, as well as leg lengths, which were compared with the pre procedure all fluoroscopic images. Trial implants were removed, the real femoral stem inserted, as was the appropriate head. After reducing, the leg was placed through range of motion and stability was confirmed anterior, posterior, and lateral. A 3 min Betadine soak was then performed, and thorough irrigation with normal saline followed. Closure of the capsule was performed with #1 PDS. Bleeding was confirmed to be controlled at this stage, and the TFL fascia was closed with #0 strata fix. Subcutaneous, and subcuticular closure was performed with 2-0 Vicryl and 4-0 Monocryl, respectively. Dressings were applied, and the patient was awoken from anesthesia and transferred the PACU in stable condition. A skilled social and human services assistant was critical for this case to aid in patient positioning, tissue retraction, acetabular and proximal femoral exposure, limb manipulation/positioning, dislocation/relocation, patient safety, and closure. PLAN: 1. Weight bear as tolerated operative extremity. 2. 23 hr perioperative antibiotics. 3. Ice. 4. PT/OT consults for ambulation assistance/mobility education. 5. Social work consult for discharge planning. 6. DVT prophylaxis with at SCDs, Yovanny Hose, and Xarelto x5 days followed by aspirin for a total of 1 month..
--- NOTE | 2023-06-27 15:28 | W.ANESCHARGE ---
Anesthesia Charges Start Date/Time Anesthesia Start Date: 06/27/23 Anesthesia Start Time: 13:30 Stop Date/Time Anesthesia Stop Date: 06/27/23 Anesthesia Stop Time: 15:25
--- NOTE | 2023-06-27 17:45 | PM.IMCN1 ---
Date of Consult Patient: [facility] Patient Consult date: 06/27/23 Primary Care Provider: Ld Pena MD Consult Narrative Reason for consult: Medical management of comorbidities Narrative: Tom Neal is a 58 year old male who presented to the hospital today for an elective R CAMERON. There were no surgical or anesthetic complications noted during procedure. Patient's H&P reviewed, PCP is Dr. Pena. Past medical history significant for: tobacco use, ED, h/o opiate use disorder. History of blood clots: No Postoperative plan: Home with partner Review of Systems Status of ROS: Reports: 10 or more systems reviewed and unremarkable except as noted in History and below PFSH [facility] Medical History (Updated 06/13/23 @ 00:00 by Dayron Cervantes) Bilateral hip pain ?M25.551 - Pain in right hip (ICD-10) ?M25.552 - Pain in left hip (ICD-10) Onychomycosis ?B35.1 - Tinea unguium (ICD-10) Traumatic tear of supraspinatus tendon of right shoulder ?S46.811A - Strain of other muscles, fascia and tendons at shoulder and upper arm level, right arm, initial encounter (ICD-10) Scapular dysfunction ?M89.9 - Disorder of bone, unspecified (ICD-10) Surgical History (Updated 06/27/23 @ 17:52 by Mady Romero MD) Status post right hip replacement ?Z96.641 - Presence of right artificial hip joint (ICD-10) Status post arthroscopy of right shoulder (10/25/22) ?Z98.890 - Other specified postprocedural states (ICD-10) Social History Narrative: girlfriend-Chandrika What is your current living situation?: I presently have a place to live In the past 12 months, utilities in danger of being shut off: no In past 12 months, lack of transportation kept you from medical appts, meetings, work, or getting things needed for daily living: no In the past 12 mos, have been you worried that your food would run out before you had money to buy more?: never true In the past 12 mos, the food you bought just didn't last and you didn't have money to buy more?: never true Smoking Status: Current every day smoker What tobacco products do you use: cigarettes Do you use any of these nicotine containing products: None Second hand tobacco smoke exposure: No How often do you have a drink containing alcohol: never How often do you have six or more drinks on one occasion: Never AUDIT-C Alcohol total score: 0 Non-prescribed substance use: denies use Caffeine: Yes How often does anyone, including family, friends and others, physically hurt you: never How often does anyone, including family, friends and others, insult or talk down to you: never How often does anyone, including family, friends and others, threaten you with harm: never How often does anyone, including family, friends and others, scream or curse at you: never Little interest or pleasure in doing things: not at all Feeling down, depressed, or hopeless: not at all service: No Meds Home Medications and Allergies Home Medications Medication Instructions Recorded Confirmed Type buprenorphine 8 mg-naloxone 2 mg 0.5 film sublingual QID 05/19/23 06/27/23 History sublingual film (Suboxone) docusate sodium 100 mg capsule 100 mg PO BID PRN 05/29/23 06/27/23 History ibuprofen 800 mg tablet 800 mg PO TID PRN pain 06/21/23 06/27/23 History Allergies Allergy/AdvReac Type Severity Reaction Status Date / Time No Known Allergies Allergy Unknown Verified 06/27/23 10:42 Exam Narrative: Exam Narrative: GEN: Alert and oriented, sitting comfortably in bed HEENT: EOMIs bilaterally, no scleral icterus CV: RRR, No concerning murmurs, rubs, or gallops R: LCTA bilaterally without concerning wheezing, rales, or rhonchi Ext: Yovanny hose BLE Skin: No concerning skin lesions or rashes on exposed skin Neuro: Nonfocal Psych: Appropriate Const: Vital Signs, click to edit/add: Vital Signs - 24 hr 06/27/23 11:01 06/27/23 13:10 06/27/23 13:15 Temperature 97.6 F 98 F Pulse Rate 65 54 L 56 L Respiratory Rate 16 16 16 Blood Pressure 127/77 101/68 104/54 L Pulse Oximetry 97 97 97 Oxygen Delivery Me thod Room Air Room Air Nasal Cannula Oxygen Flow Rate 2 06/27/23 15:20 06/27/23 15:25 06/27/23 15:30 Temperature 97.3 F L Pulse Rate 50 L 50 L 70 Respiratory Rate 18 12 14 Blood Pressure 90/53 L 88/53 L 110/68 Pulse Oximetry 94 95 96 Oxygen Delivery Me thod Room Air Oxygen Flow Rate 06/27/23 15:35 06/27/23 15:40 06/27/23 15:45 Temperature Pulse Rate 57 L 53 L 57 L Respiratory Rate 14 16 14 Blood Pressure 102/61 110/71 104/71 Pulse Oximetry 95 95 96 Oxygen Delivery Me thod Oxygen Flow Rate 06/27/23 15:50 Temperature 97.5 F L Pulse Rate 61 Respiratory Rate 14 Blood Pressure 121/76 Pulse Oximetry 97 Oxygen Delivery Me thod Room Air Oxygen Flow Rate Assessment and Plan Assessment and plan (1) Status post right hip replacement: Problem comment: - 06/17/23Oscar Status: Acute Plan - pain management and prophylaxis per orthopedic surgery team - continue home Suboxone during stay - tobacco replacement - anticipate routine postoperative course
[2023-06-27] MEDS: NICOTINE 7 MG PATCH 1 PATCH TRANSDERMA (18:30)
--- NOTE | 2023-06-27 19:30 | PC.NURSE ---
End of shift - Pt pleasant, cooperative and alert during shift. Pt reports tolerating pain, ice pack on hip. Family at bedside. Pt tolerating regular diet and fluids. Pt has not voided or ambulated during shift, reported numbness in LE. Dressing clean, dry, intact. Resting comfortably at end of shift.
[2023-06-27] MEDS: SENNOSIDES 1 TAB TABLET 2 TAB PO (20:53)
[2023-06-27] MEDS: BUPRENORPHINE-NALOX 8-2MG FILM 0.5 EACH SUBLINGUAL (20:54)
[2023-06-27] MEDS: LORazepam 0.5 MG TABLET PO (21:13)
[2023-06-27] MEDS: LACTATED RINGERS 1000 ML 1,000 ML 75 ML IV (23:12)
[2023-06-27] MEDS: 0.9 % SODIUM CHLORIDE 500 ML IV (23:13)
[2023-06-28] MEDS: ACETAMINOPHEN 500 MG TABLET 1000 MG PO ×2 (01:12→06:46)
[2023-06-28 03:00] VITALS: BP 113/70; PULSE 67; RESP 18; TEMP 36.8; O2SAT 94
[2023-06-28] MEDS: CEFAZOLIN 2 GM in 0.9 % SODIUM CHLORIDE Mini-bag 100 ML IVPB (04:04)
[2023-06-28 07:09] LABS: Hematocrit 38.9 % (37.0-53.0); Hemoglobin* 12.6 gm/dL (13.5-17.5); Immature Granulocytes Pct Auto 0.2 %; Lymphocytes Percent Auto 6.4 % (20-44); Mean Corpuscular HGB Conc 32 gm/dL (32-36); Mean Corpuscular Hemoglobin 29 pg (26-34); Mean Corpuscular Volume 91 fL (80-100); Monocytes Percent Auto 7.4 % (0.0-11.0); Platelet Count* 405 K/uL (140-440); RDW Coefficient of Variation % 12.4 % (11.5-15.5); White Blood Count* 21.74 K/uL (4.50-11.00)
[2023-06-28 07:23] LABS: Slide Review Reflex No
[2023-06-28 07:45] LABS: Potassium* 4.6 mmol/L (3.6-5.1); Sodium* 136 mmol/L (135-149)
[2023-06-28 07:47] LABS: Creatinine* 0.7 mg/dL (0.5-1.5); Est. Creatinine Clearance* 120.22; Estimated Glomerular Filt Rate 107 ml/min
[2023-06-28 07:48] LABS: Blood Urea Nitrogen* 18 mg/dL (7-30)
[2023-06-28 08:00] VITALS: BP 133/78; PULSE 64; RESP 18; TEMP 36.6; O2SAT 97
--- NOTE | 2023-06-28 09:06 | PC.NURSE ---
Patient pleasant, alert and oriented. Reported pain rated 2/10. Scheduled Tylenol effective. Ambulated well to bathroom and in hallway x1 with assist of one, gait belt and walker.
--- NOTE | 2023-06-28 09:45 | REH.OT ---
Met very briefly with PT and significant other. Answered appropriate questions regarding tub/shower set up. No charge. Pt. will be discharging home today.
--- NOTE | 2023-06-28 09:57 | PM.ORPN ---
Subjective Subjective Date Seen: 06/28/23 Principal diagnosis: Status postop day 1, right total hip arthroplasty - anterior approach Interval history: Patient reports doing well. Pain is very minimal. No acute events over night. Pain managed with scheduled and PRN medications, ice. Patient takes Suboxone. Reports this is doing well for him and is not in need of further narcotic pain medication. DVT prophylaxis: Rivaroxaban, bilateral knee high Yovanny stockings, SCDs, walking. Denies fevers, chills, aches, N/V, CP, SOB/CRUZ, or lightheadedness. Passing flatus. Ortho Exam Narrative Exam Narrative: -Patient appears comfortable in bed, eating breakfast; no apparent acute distress -Alert and oriented times 3 -Operative hip moderately swollen; soft tissues supple; no obvious erythema. No significant ecchymosis. Warmth appropriate throughout -Surgical dressing clean, dry, intact; no obvious drainage, no erythematous streaking peripheral to the bandage -Bilateral calves soft and supple; no significant swelling, edema, tenderness, erythema, discoloration, warmth, or palpable cords -2+ DP/PT pulses, intact dermatomes and myotomes distally (5/5 strength). No numbness about the lateral femoral cutaneous nerve distribution. Const Vital Signs, click to edit/add: Vital Signs - 24 hr 06/27/23 11:01 06/27/23 13:10 06/27/23 13:15 Temperature 97.6 F 98 F Pulse Rate 65 54 L 56 L Pulse Rate [Left Pulse Oximeter] Respiratory Rate 16 16 16 Blood Pressure 127/77 101/68 104/54 L Blood Pressure [Right Arm] Pulse Oximetry 97 97 97 Oxygen Delivery Method Room Air Room Air Nasal Cannula Oxygen Flow Rate 2 06/27/23 15:20 06/27/23 15:25 06/27/23 15:30 Temperature 97.3 F L Pulse Rate 50 L 50 L 70 Pulse Rate [Left Pulse Oximeter] Respiratory Rate 18 12 14 Blood Pressure 90/53 L 88/53 L 110/68 Blood Pressure [Right Arm] Pulse Oximetry 94 95 96 Oxygen Delivery Method Room Air Oxygen Flow Rate 06/27/23 15:35 06/27/23 15:40 06/27/23 15:45 Temperature Pulse Rate 57 L 53 L 57 L Pulse Rate [Left Pulse Oximeter] Respiratory Rate 14 16 14 Blood Pressure 102/61 110/71 104/71 Blood Pressure [Right Arm] Pulse Oximetry 95 95 96 Oxygen Delivery Method Oxygen Flow Rate 06/27/23 15:50 06/27/23 15:55 06/27/23 16:00 Temperature 97.5 F L 96.8 F L 96.8 F L Pulse Rate 61 67 Pulse Rate [Left Pulse Oximeter] 57 L Respiratory Rate 14 16 16 Blood Pressure 121/76 Blood Pressure [Right Arm] 119/79 106/65 Pulse Oximetry 97 96 Oxygen Delivery Method Room Air Room Air Room Air Oxygen Flow Rate 06/27/23 16:15 06/27/23 16:30 06/27/23 16:45 Temperature 96.8 F L Pulse Rate Pulse Rate [Left Pulse Oximeter] 61 56 L 54 L Respiratory Rate 16 16 16 Blood Pressure Blood Pressure [Right Arm] 118/67 118/87 108/66 Pulse Oximetry 97 97 97 Oxygen Delivery Method Room Air Room Air Room Air Oxygen Flow Rate 06/27/23 17:15 06/27/23 17:45 06/27/23 19:30 Temperature 97 F L 97 F L 98.1 F Pulse Rate Pulse Rate [Left Pulse Oximeter] 73 75 68 Respiratory Rate 16 18 18 Blood Pressure Blood Pressure [Right Arm] 87/61 L 111/94 H 117/73 Pulse Oximetry 97 93 94 Oxygen Delivery Method Room Air Room Air Room Air Oxygen Flow Rate 2 06/27/23 19:30 06/27/23 20:45 06/27/23 21:45 Temperature 98.1 F 98.2 F Pulse Rate Pulse Rate [Left Pulse Oximeter] 68 67 68 Respiratory Rate 18 16 16 Blood Pressure Blood Pressure [Right Arm] 117/73 107/68 107/63 Pulse Oximetry 95 Oxygen Delivery Method Room Air Room Air Room Air Oxygen Flow Rate 06/27/23 22:30 06/27/23 23:00 06/27/23 23:00 Temperature 97.8 F 97.8 F Pulse Rate Pulse Rate [Left Pulse Oximeter] 71 75 75 Respiratory Rate 18 18 18 Blood Pressure Blood Pressure [Right Arm] 137/85 129/80 Pulse Oximetry 94 96 Oxygen Delivery Method Room Air Room Air Oxygen Flow Rate 06/28/23 03:00 Temperature 98.3 F Pulse Rate Pulse Rate [Left Pulse Oximeter] 67 Respiratory Rate 18 Blood Pressure Blood Pressure [Right Arm] 113/70 Pulse Oximetry 94 Oxygen Delivery Method Room Air Oxygen Flow Rate Assessment and Plan Assessment and plan (1) Status post right hip replacement: Problem details: POD1 (06/17/23, Oscar) Status: Acute Plan - Complete 23 hour perioperative antibiotics. - PT/OT consult for education and assistance. - Social work consult for discharge planning - Prescribed analgesics as needed - DVT prophylaxis: Rivaroxaban, bilateral knee high Yovanny Hose stockings and SCDs - Anticipation is for discharge to home with family 06/28/2023 if the patient remains medically stable, pain is controlled, and they are safe with mobilization. - regarding postoperative narcotics for pain management, at this time will not prescribe any for discharge. Patient is worried that insurance will not cover this due to his Suboxone use. If he is having breakthrough pain issues, he may call our office or on-call for support. He may need to pay [id number] for additional pain medications if experiencing breakthrough pain. Lastly, he can start his ibuprofen regimen after Xarelto regimen is complete.
[2023-06-28] MEDS: RIVAROXABAN 10 MG TABLET PO (10:01)
[2023-06-28] MEDS: SENNOSIDES 1 TAB TABLET 2 TAB PO (10:01)
[2023-06-28] MEDS: hydrOXYzine pamoate 25 MG CAPSULE PO (10:02)
[2023-06-28] MEDS: BUPRENORPHINE-NALOX 8-2MG FILM 0.5 EACH SUBLINGUAL (10:02)
--- NOTE | 2023-06-28 14:34 | PC.NURSE ---
AFEBRILE. DRESSING TO RIGHT HIP CDI. UP WITH SBA, WALKER AND GAIT BELT. PAIN CONTROLLED WITH VISTARIL, TYLENOL, SUBOXONE AND ACTIVE ICE. TOLERATING REGULAR DIET WITH NO C/O N/V. SALINE LOCK DC'D. REVIEWED DC INSTRUCTIONS WITH PATIENT AND HE DENIED QUESTIONS OR CONCERNS. PATIENT DC'D HOME VIA SO.
--- NOTE | 2023-06-28 16:36 | PC.NURSE ---
Spoke with friend Moriah on behalf of patient, concerned about cost of blood thinner as insurance did not cover and was $97 for 4 tablets. Spoke with Bam MARIE and he advised that patient really should use med as it is best/safetest medication. Moriah/patient understand and are good with this plan.
--- NOTE | 2023-06-29 15:30 | PC.NURSE ---
PATIENT'S SIGNIFICANT OTHER, CHATA, CALLED REGARDING WANTING A PRESCRIPTION FOR A TOILET SEAT LIFT. CALLED FRANK GONZALEZ AND HE WAS SENDING PRESCRIPTION TO [facility] IN [place]. UPDATED CHATA THAT PRESCRIPTION WAS SENT.
== END 2023-06-28 11:16 | disposition home or self-care (01) ==
LOC: OR 10:32 → MEDSURG 10:34
PROVIDERS: PCP Family Medicine; Visit Provider Orthopaedic Surgery Sports Medicine
PROC: (CPT 27130; principal; 2023-06-27 12:00)
DX: M16.11 Unilateral primary osteoarthritis, right hip (principal); G89.18 Other acute postprocedural pain; F17.210 Nicotine dependence, cigarettes, uncomplicated; Z79.891 Long term (current) use of opiate analgesic; F11.11 Opioid abuse, in remission
CPT/HCPCS: 27130; 01214; 36415; 64450; 73501; 73502; 76000; 76942; 82565; 84132; 84295; 84520; 85025; 97110; 97116; 97161; A9270; C1776; J0574; J0690; J1100; J1885; J2250; J2405; J2704; J2795; J3010; J3490; J7120; S4990

== ENCOUNTER 2023-08-10 13:15 | Outpatient (RCR) | payer BC, SELFPAY ==
--- NOTE | 2023-06-13 12:11 | PT.OPEX ---
PT [place] Outpatient Eval PT [facility] Outpatient Eval Start: 06/01/23 12:51 Freq: Status: Active Protocol: Document 06/13/23 08:02 AMS (Rec: 06/13/23 11:07 [facility] [id number]) E-signed By Hoda Rivera PT Physical Therapy Outpatient Evaluation Insurance Information Recert Due Date 09/06/23 Insurance Name Medicaid,Blue Cross/Blue Shield Medical Diagnosis Presence of right artificial hip joint Unilateral primary osteoarthritis, right hip S/p right CAMERON on 06/27/23 Treating Diagnosis Right hip pain Aftercare after joint replacement Muscle weakness Difficulty walking Referring MD Tyrone Barry Subjective Subjective Patient is a 57 year old male here for preoperative evaluation for upcoming right total hip arthroplasty. Indication is severe bilateral hip arthritis with more pain on the right currently. Significant pain with ADLs. Able to walk reasonably well as long as he takes ibuprofen. This will be done on June 06. -Dr. Pena 05/23/23; confirmed by patient Pt presents to physical therapy for pre-operative total hip arthroplasty appointment. His surgery was rescheduled for 06/27/23. This will be an anterior approach. He has tried ibuprofen and activity modification without success. Functional limitations/aggravating factors include performing yardwork, walking longer than a short distance, playing [employer], getting in and out of bed/car, standing up from the chair, and bending forward at the hip/tying his shoes. He is looking forward to having the surgery be done so he can get back to these activities. He has not had hip surgery before. The hip pain has bothered him for a long time (over a year), but it just started getting worse about 4 months ago. He would localize the pain to the groin bilaterally, but right worse than left. States he will most likely have the left replaced later on. His home is all one level with no stairs to enter. His girlfriend, Chandrika, will be available 24-7 after surgery to assist him as needed and drive him to appointments. He does not have grab bars in the bathroom and has normal height toilet. His bathroom has a tub shower. Does not own any adaptive equipment ( rn provider relations, walker) except for a cane. Would like to obtain a FWW through insurance. He has one step to get to his bed, as it is elevated, but states he can sleep on the couch as needed. Pain Comments 3/10 current, sometimes worse Date of Last Physician Visit 05/23/23 Date of Surgery (If applicable) 06/27/23 Current Work Status Unemployed Occupation Unemployed; considering going back to school to finish [employer] arts degree Preferred Name Tom Precautions Treatment Precautions/Contraindications Anterior approach CAMERON on 06/27 - avoid extension ROM Weight Bearing Status Weight Bear as Tolerated Objective Other/Pertinent Objective Functional mobility Double leg squat: To 70 deg, pain in groin Knee ROM L 0-0-135 R 0-0-135 Hip ROM (R/L) Hip flexion: 95*/95 Hip ER: Mildly more limited on right, WFL Hip IR: 10*/10 Abduction: WNL Extension: not assessed *pain in groin Strength: Quad set: good SLR: WNL Gait/balance: Ambulates with mildly antalgic gait on right, heel-toe, no gait aid. Palpation/joint mobility: No TTP over ASIS or groin/quad Assessment Assessment/Impression Patient is a 58 year old male presenting for pre-operative visit prior to right anterior approach total hip arthroplasty on 06/27/23. Upon assessment, patient displays decreased hip ROM, decreased proximal hip strength, pain with squatting, and antalgic gait pattern. These impairments lead to difficulty with performing yardwork, walking longer than a short distance, playing hacky sack, getting in and out of bed/car, standing up from the chair, and bending forward at the hip /tying his shoes. Patient will be seen post operatively to reassess impairments that will beaddressed with skilled care . Will reach out to Dr. Pena for order for front- wheeled walker, as pt would like to obtain through insurance. Tom would greatly benefit from skilled PT in order to progress strength, ROM, and ambulation post operatively in order to perform all household and work duties without significant difficulty or discomfort. Primary Functional Limitations performing yardwork, walking longer than a short distance, playing hacky sack, getting in and out of bed/car, standing up from the chair, and bending forward at the hip/tying his shoes Plan of Care Rehabilitation Potential Good Physical Therapy Goals After pre-op visit: ? Patient will be independent with HEP. MET ? Patient will have knowledge of hip precautions after surgery. MET ? Patient will have knowledge on home adaptations and use of assistive devices post operatively. MET ? Patient will have knowledge of edema management. MET Coordination/Communication With Referral Source Treatment Plan/Direct Interventions Gait Training,Joint Mobilization,Manual Therapy, Neuromuscular Re-ed,Self-Care/ Home Management,Therapeutic Activities,Therapeutic Exercises Frequency/Duration 1x visit prior to surgery on 06/27/23. Patient scheduled to start outpatient PT s/p CAMERON on 07/04/23. Has HEP to start with pre-operatively. Patient Will Be Discharged From Therapy Completion of LTG(s), Independent w/HEP, Independently Progressing Evaluation Billing Untimed Code Treatment Minutes 15 Complexity Low Certification Information Initial Certification Date 06/13/23 Ending Certification Date 09/06/23 Provider Signature Shows Agreement With POC & Medical Necessity Physician Signature & Date Requested Please Sign/Date Here Physician Comment/Change : Physician NPI Number #
== END 2023-08-10 15:55 | disposition home or self-care (01) ==
PROVIDERS: PCP Family Medicine; Visit Provider Orthopaedic Surgery Sports Medicine
DX: M16.11 Unilateral primary osteoarthritis, right hip (principal); Z96.641 Presence of right artificial hip joint; M25.551 Pain in right hip; Z47.1 Aftercare following joint replacement surgery; Z96.60 Presence of unspecified orthopedic joint implant; M62.81 Muscle weakness (generalized); R26.2 Difficulty in walking, not elsewhere classified; Z51.89 Encounter for other specified aftercare
CPT/HCPCS: 97110; 97112; 97116; 97161; 97164

== ENCOUNTER 2023-08-23 11:01 | Outpatient (CLI) | payer BC, SELFPAY | END 2023-08-23 11:02 | disposition home or self-care (01) | PROVIDERS: PCP Family Medicine; Visit Provider Orthopaedic Surgery Sports Medicine | DX: Z01.818 Encounter for other preprocedural examination (principal) | CPT/HCPCS: 36415; 86850; 86900; 86901 ==

== ENCOUNTER 2023-08-24 09:01 | Day surgery (SDC) | payer BC, SELFPAY ==
[2023-08-24] VITALS (23 sets, daily range): BP systolic 109–144; BP diastolic 62–100; PULSE 62–84; RESP 12–18; TEMP 35.8–36.9; O2SAT 92–100; BMI 28.5
[2023-08-24] MEDS: LACTATED RINGERS 1000 ML 1,000 ML 100 ML IV ×2 (09:10→12:38)
--- NOTE | 2023-08-24 09:19 | CRLHL7_ITS ---
For Patients: As a result of the Century Cures Act, medical imaging exams and procedure reports are released immediately into your electronic medical record. You may view this report before your referring provider. If you have questions, please contact your health care provider. Indication: POST OP LT CAMERON Technique: AP hips and pelvis and lateral view left hip Findings/Impression: Hardware from a left total hip arthroplasty is in satisfactory position. Bone alignment is normal. No sign of acute fracture. Postop changes are within normal limits. Dictated by Konstantin Briones MD @ 08/25/2023 9:10:26 AM (Electronically Signed)
[2023-08-24] MEDS: OXYCODONE (CR) 10 MG TAB.ER.12H PO (10:00)
[2023-08-24] MEDS: ACETAMINOPHEN 500 MG TABLET 1000 MG PO ×3 (10:00→22:05)
[2023-08-24] MEDS: MIDAZOLAM HCL 1 MG/ML inj IVP (10:05)
[2023-08-24] MEDS: fentaNYL 100 MCG/2 ML inj IVP (10:05)
--- NOTE | 2023-08-24 10:15 | SUR.PREOP ---
TIME?OUT:?1000 PT/RN/MDA?VERIFICATION?OF?SURGICAL?SITE,?PROCEDURE,?AND?CONSENT OBTAINED?PRIOR?TO?INVASIVE?PROCEDURE.
--- NOTE | 2023-08-24 10:35 | W.PM.NB ---
Nerve Block Nerve Block Time Seen by Provider: 10:08 Date Seen: 08/24/23 Type of block requested by surgeon for post-operative analgesia: ILEANA/LFCN Side: left Time out performed: Yes Verification of patient name: Yes Verification of date of : Yes Site marking: site marked Name of person performing procedure: Felix Continuous monitoring Was continuous monitoring of O2 sat, B/P, vehicle monitor technician, recorded every 15 minutes?: Yes Procedure Checklist: sterile prep, needles and gloves Ultrasound guided. Images saved: Yes Medications given in 5ml increments after negative aspiration: Ropivicaine %: 0.5 mL: 30 Needle gauge: 20 Decadron (mg): 10 Precedex (mcg): 25 Patient tolerated procedure well: Yes Additional comments: Needle noted below psoas tendon needle noted adjacent to LFCN Block Charges Block Charge (with Pro Fee): Other Periph Nerve Block Use of Ultrasound Machine for Block: Yes- US Guidance/pain block
--- NOTE | 2023-08-24 10:45 | CRLHL7_ITS ---
For Patients: As a result of the Cures Act, medical imaging exams and procedure reports are released immediately into your electronic medical record. You may view this report before your referring provider. If you have questions, please contact your health care provider. Indication: Hip replacement surgery Technique: AP hip fluoroscopic image. Fluoroscopy time 41.7 seconds. Findings/Impression: Hardware from a left total hip arthroplasty is in satisfactory position. Dictated by Konstantin Briones MD @ 08/25/2023 9:09:37 AM (Electronically Signed)
[2023-08-24] MEDS: TRANEXAMIC ACID 100 MG/ML INJ 1000 MG IV (11:18)
[2023-08-24] MEDS: CEFAZOLIN 2 GM in 0.9 % SODIUM CHLORIDE Mini-bag 100 ML IVPB ×2 (11:21→17:35)
--- NOTE | 2023-08-24 11:58 | SUR.OPER ---
PATIENT QUESTIONS ANSWERED SATISFACTORILY PREOPERATIVELY. PATIENT BROUGHT TO OR #3 PER CART AFTER ADMINISTRATION OF A BLOCK. Patient positioned supine on OR #3 bed. The perioperative team supported arms bilaterally on arm boards. Final approval of positioning by surgeon.
--- NOTE | 2023-08-24 12:41 | PM.ORPRC ---
Procedure Note Date of procedure: 08/24/23 Procedure: PREOPERATIVE DIAGNOSIS: 1. Left hip osteoarthritis, severe, primary POSTOPERATIVE DIAGNOSIS: 1. Left hip osteoarthritis, severe, primary PROCEDURE: 1. Left total hip arthroplasty-anterior approach 2. 30254 - intraoperative fluoroscopy up to 1 hour. SURGEON: Tyrone Moore MD. TELEVISION PRESENTER: Bam Cooney PA-C; Basim MEDINA - Of note, a skilled accounting administrative assistant was critical for this case to aid in patient positioning, tissue retraction, limb manipulation/positioning, dislocation/relocation, patient safety, and closure. ANESTHESIA: General endotracheal anesthetic EBL: 300 mL IMPLANTS: DePuy J&J uncemented total hip [place] cup size 52, hole eliminator, +4 neutral liner Actis stem, high offset, size 8 +1.5 mm ceramic 36 mm head. COMPLICATIONS: None evident INDICATIONS: The patient is a pleasant 58-year-old male who has experienced severe left hip pain and difficulty bearing weight. Workup included x-rays which revealed severe osteoarthrosis in the hip. Given the deformity, the dysfunction, and the pain, as well as the failure of nonoperative management, recommendation was made for surgery. FINDINGS: Full-thickness chondral loss diffusely throughout the femoral head and neck. Osteophytosis from the femoral head/neck junction and acetabulum. Moderate effusion upon joint DESCRIPTION OF PROCEDURE: Following a thorough discussion of risks, benefits, and alternatives consent was obtained and the left hip was marked. The patient was brought to the operating room and placed supine on the operating table. Induction of anesthesia was undertaken. 2 g IV Ancef and 1 g tranexamic acid was administered within 1 hr of incision preoperatively. Proper time-out was performed identifying proper patient, site, procedure. The operative extremity was prepped and draped in the appropriate sterile fashion using ChloraPrep after the patient was positioned on the [place] table with head in neutral alignment and all bony prominences well padded. C-arm fluoroscopic imaging was utilized to confirm proper pelvis rotation and position, and to get true AP films of both the contralateral left, and the affected left hip. This is for comparison. A longitudinal incision was made starting approximately 1 cm distal to the ASIS, and 3-4 cm lateral. The incision was extended distally aiming toward the lateral border the patella. Sharp incision through skin and bovie cautery through the subcutaneous tissue allowed identification of the TFL fascia. This was sharply divided, and the fascia bluntly released from the muscle fibers as we dissected medial. Upon coming to the medial border, we were able to retract the TFL laterally, and penetrated the deeper fascia and identify the crossing circumflex vessels. These were ligated/cauterized. The rectus was elevated from the capsule, and retractors placed laterally and medially along the femoral neck to help with visualization of the capsule. We then performed an inverted T capsulotomy. The capsule was tagged for later repair. Retractors were placed inside the capsule. The femoral neck was visualized after releasing medially down to the lesser trochanter, along the saddle laterally, and up onto the acetabulum. The femoral neck cut was made in line with our preoperative templating. The head was removed in a single piece, and sized. We turned our attention to acetabular preparation. Initially, the labrum was resected from around the perimeter, the pulvinar was excised, allowing us to visualize the false wall. We started the reaming with a 43 mm reamer. This was medialized down to the true wall. We then enlarged our reamers sequentially up to one size less than the selected cup size. We trialed at the same size and found it to have an excellent fit. The selected cup was then opened, inserted, and impacted in line with the goal of 40-45? of abduction, and 20-25? of anteversion. This was confirmed on C-arm fluoroscopic imaging to be in the appropriate/goal position. Once the cup was placed we placed a hole eliminator and a liner consistent with preop planning. Attention was turned to the femoral preparation. The limb was extended, externally rotated, and adducted. The posteromedial capsule was released, as retractors were placed allowing excellent access to the proximal femur. Initially a box sealing inspector was followed by canal finder followed by various broaches. We broached sequentially up to size noted above, found it to have excellent rotational control, and trialing various heads and necks, revealed that appropriate neck offset, and the above noted head size provided the greatest stability, and zoroastrian of length, and offset. C-arm fluoroscopic imaging confirmed position of the stem, as well as leg lengths, which were compared with the pre procedure all fluoroscopic images. Trial implants were removed, the real femoral stem inserted, as was the ceramic head. After reducing, the leg was placed through range of motion and stability was confirmed anterior, posterior, and lateral. A 3 min Betadine soak was then performed, and thorough irrigation with normal saline followed. Closure of the capsule was performed with #1 PDS. Bleeding was confirmed to be controlled at this stage, and the TFL fascia was closed with #0 strata fix. Subcutaneous, and subcuticular closure was performed with 2-0 Vicryl and 4-0 Monocryl, respectively. Dressings were applied, and the patient was awoken from anesthesia and transferred the PACU in stable condition. A skilled accounting administrative assistant was critical for this case to aid in patient positioning, tissue retraction, proximal femur exposure, limb manipulation/positioning, dislocation/relocation, patient safety, and closure. PLAN: 1. Weight bear as tolerated operative extremity. 2. 23 hr perioperative antibiotics. 3. Ice. 4. PT/OT consults for ambulation assistance/mobility education. 5. Social work consult for discharge planning. 6. DVT prophylaxis with at SCDs, Yovanny Yuane, and Xarelto x5 days followed by aspirin for a total of 1 month..
--- NOTE | 2023-08-24 13:29 | W.ANESCHARGE ---
Anesthesia Charges Start Date/Time Anesthesia Start Date: 08/24/23 Anesthesia Start Time: 11:09 Stop Date/Time Anesthesia Stop Date: 08/24/23 Anesthesia Stop Time: 13:28
--- NOTE | 2023-08-24 13:49 | W.ANESCHARGE ---
Anesthesia Charges Start Date/Time Anesthesia Start Date: 08/24/23 Anesthesia Start Time: 11:09 Stop Date/Time Anesthesia Stop Date: 08/24/23 Anesthesia Stop Time: 13:28
[2023-08-24] MEDS: HYDROmorphone 0.5 mg/0.5 ml inj IVP (14:28)
--- NOTE | 2023-08-24 14:49 | P.IMCN_ITS ---
Date of Consult Patient: 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 Patient reports pain is currently a 4/10, improved after pain medication. Denies nausea or vomiting, tolerating orals. This is patient's 3rd joint surgery of the year, his last being his right hip 2 months ago. There have been no perioperative complications or nursing concerns reported. Estimated total blood loss documented as 300 ml. Updated and reviewed the active medical problems, past medical history, past surgical history, social history, allergies and medications in our electronic EMR. Review of Systems Narrative: REVIEW OF SYSTEMS: Complete review of systems performed and negative unless otherwise stated in HPI or below. PFSH PFSH Medical History Foreign body, eye ?T15.90XA - Foreign body on external eye, part unspecified, unspecified eye, initial encounter (ICD-10) Bilateral hip pain ?M25.551 - Pain in right hip (ICD-10) ?M25.552 - Pain in left hip (ICD-10) Onychomycosis ?B35.1 - Tinea unguium (ICD-10) Traumatic tear of supraspinatus tendon of right shoulder ?S46.811A - Strain of other muscles, fascia and tendons at shoulder and upper arm level, right arm, initial encounter (ICD-10) Scapular dysfunction ?M89.9 - Disorder of bone, unspecified (ICD-10) Surgical History Status post right hip replacement (06/27/23) ?Z96.641 - Presence of right artificial hip joint (ICD-10) Status post arthroscopy of right shoulder (10/25/22) ?Z98.890 - Other specified postprocedural states (ICD-10) Family History Mother Breast cancer, Onset Age: 55 Social History Narrative: girlfriend-Chandrika Smokes 2 cigarettes daily, 10 pack year Does not drink alcohol Does not use drugs, since 2021 Used to work construction until 2021 What is your current living situation?: I presently have a place to live In the past 12 months, utilities in danger of being shut off: no In past 12 months, lack of transportation kept you from medical appts, meetings, work, or getting things needed for daily living: no In the past 12 mos, have been you worried that your food would run out before you had money to buy more?: never true In the past 12 mos, the food you bought just didn't last and you didn't have money to buy more?: never true Highest level of school completed/degree received: decline to answer Smoking Status: Current every day smoker What tobacco products do you use: cigarettes Do you use any of these nicotine containing products: None Second hand tobacco smoke exposure: Yes How often do you have a drink containing alcohol: never How often do you have six or more drinks on one occasion: Never AUDIT-C Alcohol total score: 0 Non-prescribed substance use: denies use Caffeine: Yes How often does anyone, including family, friends and others, physically hurt you : never How often does anyone, including family, friends and others, insult or talk down to you: never How often does anyone, including family, friends and others, threaten you with harm: never How often does anyone, including family, friends and others, scream or curse at you: never Little interest or pleasure in doing things: not at all Feeling down, depressed, or hopeless: not at all service: No Meds Home Medications and Allergies Home Medications Medication Instructions Recorded Confirmed Type buprenorphine 8 mg-naloxone 2 mg 0.5 film sublingual QID 05/19/23 08/24/23 Hist ory sublingual film (Suboxone) Allergies Allergy/AdvReac Type Severity Reaction Status Date / Time No Known Allergies Allergy Unknown Verified 08/24/23 09:17 Exam Narrative: Exam Narrative: PHYSICAL EXAM General: Pleasant, conversant, NAD HEENT: Normocephalic, atraumatic, sclera white, EOMI, oral mucosa moist Cardiovascular: RRR, S1S2. No pitting edema Pulmonary: CTA bilaterally without rhonchi, rales, expiratory wheezes. No dyspnea Abdominal: Soft, nondistended, NTTP Neurological: Alert, answering questions appropriately, cranial nerves intact, no focal findings Extremities: No gross joint deformity or swelling. Postoperative dressing in pl [place], dry. Neurovascularly intact Skin: Warm, dry. Const: Vital Signs, click to edit/add: Vital Signs - 24 hr 08/24/23 09:54 08/24/23 10:00 08/24/23 10:05 Temperature 97.8 F Pulse Rate 80 63 63 Pulse Rate [Right Pulse Oximeter] Respiratory Rate 16 16 16 Blood Pressure 130/67 125/75 112/71 Blood Pressure [Le ft Arm] Pulse Oximetry 96 100 100 Oxygen Delivery Me thod Room Air Nasal Cannula Nasal Cannula Oxygen Flow Rate 2 2 08/24/23 10:10 08/24/23 13:23 08/24/23 13:30 Temperature 97.6 F Pulse Rate 65 63 79 Pulse Rate [Right Pulse Oximeter] Respiratory Rate 16 16 14 Blood Pressure 110/74 132/75 133/74 Blood Pressure [Le ft Arm] Pulse Oximetry 100 97 98 Oxygen Delivery Me thod Nasal Cannula Room Air Room Air Oxygen Flow Rate 2 08/24/23 13:35 08/24/23 13:40 08/24/23 13:45 Temperature 97.5 F L Pulse Rate 67 69 62 Pulse Rate [Right Pulse Oximeter] Respiratory Rate 16 16 14 Blood Pressure 124/72 124/79 129/73 Blood Pressure [Le ft Arm] Pulse Oximetry 97 95 98 Oxygen Delivery Me thod Room Air Room Air Room Air Oxygen Flow Rate 08/24/23 13:50 08/24/23 13:55 08/24/23 14:01 Temperature 97.5 F L 96.8 F L Pulse Rate 65 63 70 Pulse Rate [Right Pulse Oximeter] Respiratory Rate 14 16 14 Blood Pressure 128/77 142/82 H Blood Pressure [Le ft Arm] 126/76 Pulse Oximetry 99 98 Oxygen Delivery Me thod Room Air Room Air Room Air Oxygen Flow Rate 08/24/23 14:15 08/24/23 14:30 Temperature 96.7 F L 96.5 F L Pulse Rate Pulse Rate [Right Pulse Oximeter] 71 64 Respiratory Rate 14 14 Blood Pressure Blood Pressure [Le ft Arm] 144/100 H 142/89 H Pulse Oximetry 97 98 Oxygen Delivery Me thod Room Air Room Air Oxygen Flow Rate Assessment and Plan Assessment and plan (1) Osteoarthritis of left hip: Problem comment: -POD#0 s/p left total hip arthroplasty-anterior approach -perioperative management including pain management and anticoagulation per Orthopedic surgery. Patient has his Suboxone with him. -encourage postoperative pulmonary hygiene -PT OT consults -plan to discharge home with spouse tomorrow Status: Acute (2) History of substance abuse: Problem comment: -On Suboxone therapy followed by Dr. Wili Ni. No meth or opiates since 2021 Status: Chronic
[2023-08-24] MEDS: hydrOXYzine pamoate 25 MG CAPSULE PO (15:40)
[2023-08-24] MEDS: OXYCODONE 5 MG TABLET PO (15:40)
--- NOTE | 2023-08-24 19:33 | PC.NURSE ---
End of Shift: Patient pleasant and cooperative. Patient vitally stable, lungs clear, BS WNL, IV SL and intact. Patient upon arrival from PACU rates pain 6/10, dilauded given once. Later patient given tylenol, 5mg of oxy, and hydroxyzine once, with pain decreasing to 2/10. Patient has been up to chair and ambulated to toilet. Patient tolerating regular diet. Ice pack to left hip, left hip dressing C/D/I.
[2023-08-24] MEDS: SENNOSIDES 1 TAB TABLET 2 TAB PO (22:05)
[2023-08-25] MEDS: CEFAZOLIN 2 GM in 0.9 % SODIUM CHLORIDE Mini-bag 100 ML IVPB (02:56)
[2023-08-25 03:00] VITALS: BP 103/56; PULSE 83; RESP 16; TEMP 37.1; O2SAT 95
[2023-08-25] MEDS: ACETAMINOPHEN 500 MG TABLET 1000 MG PO ×2 (03:35→10:04)
--- NOTE | 2023-08-25 05:49 | PC.NURSE ---
End of shift report [id number]: Alert and oriented x 4. Pain to left hip rated at 1-2/10 throughout the shift, pain is well managed with current regimen as well as ice packs. Dressing clean, dry and intact. Up with SBA with walker and gait belt to bathroom, gait steady. CMS intact to LLE.
[2023-08-25 07:03] LABS: Basophils Percent Auto 0.2 % (0.0-3.0); Eosinophils Percent Auto 0.3 % (0.0-7.0); Hematocrit 35.5 % (37.0-53.0); Hemoglobin* 11.5 gm/dL (13.5-17.5); Immature Granulocytes Pct Auto 0.2 %; Lymphocytes Percent Auto 10.7 % (20-44); Mean Corpuscular HGB Conc 32 gm/dL (32-36); Mean Corpuscular Hemoglobin 29 pg (26-34); Mean Corpuscular Volume 90 fL (80-100); Monocytes Percent Auto 11.7 % (0.0-11.0); Neutrophils Percent Auto 76.9 % (42.0-72.0); Platelet Count* 396 K/uL (140-440); RDW Coefficient of Variation % 12.8 % (11.5-15.5); Red Blood Count 3.96 m/uL (4.30-5.90); White Blood Count* 15.77 K/uL (4.50-11.00)
[2023-08-25 07:16] LABS: Potassium* 4.1 mmol/L (3.6-5.1); Sodium* 135 mmol/L (135-149)
[2023-08-25 07:19] LABS: Blood Urea Nitrogen* 12 mg/dL (7-30); Creatinine* 0.8 mg/dL (0.5-1.5); Est. Creatinine Clearance* 105.19; Estimated Glomerular Filt Rate 103 ml/min
[2023-08-25 07:36] LABS: Slide Review Reflex No
[2023-08-25 08:28] VITALS: BP 137/73; PULSE 83; RESP 12; TEMP 36.9; O2SAT 98
[2023-08-25 08:29] VITALS: PULSE 83; RESP 12
[2023-08-25] MEDS: OXYCODONE 5 MG TABLET PO (08:32)
[2023-08-25] MEDS: RIVAROXABAN 10 MG TABLET PO (08:32)
[2023-08-25] MEDS: SENNOSIDES 1 TAB TABLET 2 TAB PO (08:32)
[2023-08-25] MEDS: BUPRENORPHINE-NALOX 8-2MG FILM 0.5 EACH SUBLINGUAL (08:33)
[2023-08-25] MEDS: hydrOXYzine pamoate 25 MG CAPSULE PO (08:39)
--- NOTE | 2023-08-25 10:00 | PM.ORPN ---
Subjective Subjective Date Seen: 08/25/23 Principal diagnosis: Status postop day 1, left total hip arthroplasty - anterior approach Interval history: Patient reports doing well. No acute events over night. Reports this time, the block seemed to wear off faster, thus feels like his left hip/thigh has been punched. Pain managed with scheduled and PRN medications, ice. DVT prophylaxis: Rivaroxaban, bilateral knee high Yovanny stockings, SCDs, walking. Denies fevers, chills, aches, N/V, CP, SOB/CRUZ, or lightheadedness. Ortho Exam Narrative Exam Narrative: -Patient appears comfortable in the plantar; no apparent acute distress. Significant other present. -Alert and oriented times 3 -Operative hip mildly swollen; soft tissues supple; no obvious erythema. No obvious ecchymosis. Warmth appropriate -Surgical dressing clean, dry, intact; no obvious drainage, no erythematous streaking peripheral to the bandage -Bilateral calves soft and supple; no significant swelling, edema, tenderness, erythema, discoloration, warmth, or palpable cords -2+ DP/PT pulses, intact dermatomes and myotomes distally (5/5 strength). No numbness about the lateral femoral cutaneous nerve distribution. Const Vital Signs, click to edit/add: Vital Signs - 24 hr 08/24/23 10:05 08/24/23 10:10 08/24/23 13:23 Temperature 97.6 F Pulse Rate 63 65 63 Pulse Rate [Right Pulse Oximeter] Respiratory Rate 16 16 16 Blood Pressure 112/71 110/74 132/75 Blood Pressure [Left Arm] Blood Pressure [Right Arm] Pulse Oximetry 100 100 97 Oxygen Delivery Method Nasal Cannula Nasal Cannula Room Air Oxygen Flow Rate 2 2 08/24/23 13:30 08/24/23 13:35 08/24/23 13:40 Temperature 97.5 F L Pulse Rate 79 67 69 Pulse Rate [Right Pulse Oximeter] Respiratory Rate 14 16 16 Blood Pressure 133/74 124/72 124/79 Blood Pressure [Left Arm] Blood Pressure [Right Arm] Pulse Oximetry 98 97 95 Oxygen Delivery Method Room Air Room Air Room Air Oxygen Flow Rate 08/24/23 13:45 08/24/23 13:50 08/24/23 13:55 Temperature 97.5 F L Pulse Rate 62 65 63 Pulse Rate [Right Pulse Oximeter] Respiratory Rate 14 14 16 Blood Pressure 129/73 128/77 142/82 H Blood Pressure [Left Arm] Blood Pressure [Right Arm] Pulse Oximetry 98 99 98 Oxygen Delivery Method Room Air Room Air Room Air Oxygen Flow Rate 08/24/23 14:01 08/24/23 14:15 08/24/23 14:30 Temperature 96.8 F L 96.7 F L 96.5 F L Pulse Rate 70 Pulse Rate [Right Pulse Oximeter] 71 64 Respiratory Rate 14 14 14 Blood Pressure Blood Pressure [Left Arm] 126/76 144/100 H 142/89 H Blood Pressure [Right Arm] Pulse Oximetry 97 98 Oxygen Delivery Method Room Air Room Air Room Air Oxygen Flow Rate 08/24/23 14:45 08/24/23 15:00 08/24/23 15:00 Temperature 97.1 F L 97.1 F L Pulse Rate Pulse Rate [Right Pulse Oximeter] 70 72 Respiratory Rate 16 16 16 Blood Pressure Blood Pressure [Left Arm] 138/86 124/74 Blood Pressure [Right Arm] Pulse Oximetry 98 98 Oxygen Delivery Method Room Air Room Air Oxygen Flow Rate 08/24/23 15:30 08/24/23 16:00 08/24/23 17:00 Temperature 97.1 F L 97.2 F L 97.4 F L Pulse Rate Pulse Rate [Right Pulse Oximeter] 68 68 81 Respiratory Rate 16 12 16 Blood Pressure Blood Pressure [Left Arm] 140/75 H 109/62 118/85 Blood Pressure [Right Arm] Pulse Oximetry 92 100 93 Oxygen Delivery Method Room Air Room Air Room Air Oxygen Flow Rate 0 08/24/23 18:00 08/24/23 19:00 08/24/23 20:00 Temperature 97.8 F 98.4 F 98.4 F Pulse Rate Pulse Rate [Right Pulse Oximeter] 80 80 84 Respiratory Rate 16 16 18 Blood Pressure Blood Pressure [Left Arm] 124/80 142/76 H 136/82 Blood Pressure [Right Arm] Pulse Oximetry 94 97 98 Oxygen Delivery Method Room Air Room Air Room Air Oxygen Flow Rate 0 08/24/23 23:00 08/24/23 23:00 08/25/23 03:00 Temperature 98.1 F 98.8 F Pulse Rate Pulse Rate [Right Pulse Oximeter] 83 83 83 Respiratory Rate 16 16 16 Blood Pressure Blood Pressure [Left Arm] 115/69 103/56 L Blood Pressure [Right Arm] Pulse Oximetry 96 95 Oxygen Delivery Method Room Air Room Air Oxygen Flow Rate 0 08/25/23 08:28 08/25/23 08:29 Temperature 98.5 F Pulse Rate Pulse Rate [Right Pulse Oximeter] 83 83 Respiratory Rate 12 12 Blood Pressure Blood Pressure [Left Arm] Blood Pressure [Right Arm] 137/73 Pulse Oximetry 98 Oxygen Delivery Method Room Air Oxygen Flow Rate Assessment and Plan Assessment and plan (1) Osteoarthritis of left hip: Problem details: -POD#1 s/p left total hip arthroplasty-anterior approach -perioperative management including pain management and anticoagulation per Orthopedic surgery. Patient has his Suboxone with him. -encourage postoperative pulmonary hygiene -PT OT consults -plan to discharge home with spouse tomorrow Status: Acute (2) History of substance abuse: Problem details: -On Suboxone therapy followed by Dr. Wili Ni. No meth or opiates since 2021 Status: Chronic Plan - Complete 23 hour perioperative antibiotics. - PT/OT consult for education and assistance. - Social work consult for discharge planning - Prescribed analgesics as needed - DVT prophylaxis: Rivaroxaban for 5 days, followed by 81 mg aspirin by mouth twice daily bilateral knee high Yovanny Hose stockings and SCDs - Anticipation is for discharge to home with significant other 08/25/2023 if the patient remains medically stable, pain is controlled, and they are safe with mobilization. -we discussed pain management postoperative. He is on Suboxone, 16 mg total daily. Also prescribed a few tablets of oxycodone to help with postoperative breakthrough pain.
--- NOTE | 2023-08-25 10:34 | REH.OT ---
Orders received for OT eval and treat post LTHA. Patient had previous RTHA ~ 2 months ago. Met with patient and SO who decline need for OT intervention this time. No formal OT warranted. He will discharge home today.
--- NOTE | 2023-08-25 11:11 | PC.NURSE ---
Discharge: Patient pleasant and cooperative. Patient vitally stable, lungs clear, BS WNL, IV removed, catheter intact. Patient 1 assist/walker. Patient rates pain 5-6/10 with activity otherwise 1-2/10. Tylenol, hydroxyzine and 5mg of oxy given once. Patient tolerating regular diet and urinating. Patient left hip dressing C/D/I. Patient signed belongings sheet and discharge from, with no further question regarding discharge. Patient left the floor by wheelchair to home at 1051.
== END 2023-08-25 10:51 | disposition home or self-care (01) ==
LOC: OR 09:01 → MEDSURG 09:03
PROVIDERS: PCP Family Medicine; Visit Provider Orthopaedic Surgery Sports Medicine
PROC: (CPT 27130; principal; 2023-08-24 10:45)
DX: M16.12 Unilateral primary osteoarthritis, left hip (principal); G89.18 Other acute postprocedural pain; F15.11 Other stimulant abuse, in remission; F11.11 Opioid abuse, in remission; Z79.891 Long term (current) use of opiate analgesic
CPT/HCPCS: 27130; 01214; 36415; 64450; 73501; 76000; 76942; 82565; 84132; 84295; 84520; 85025; 97110; 97116; 97161; A9270; C1776; J0330; J0574; J0690; J1100; J1170; J2250; J2405; J2795; J3010; J7120

== ENCOUNTER 2023-10-26 11:15 | Outpatient (RCR) | payer BC, SELFPAY ==
--- NOTE | 2023-09-13 12:15 | PT.OPEX ---
PT Padroni Outpatient Eval PT [facility] Outpatient Eval Start: 09/05/23 07:50 Freq: Status: Active Protocol: Document 09/13/23 08:13 AMS (Rec: 09/13/23 08:18 AMS [id number]) E-signed By Hoda Rivera PT Physical Therapy Outpatient Evaluation Insurance Information Recert Due Date 12/07/23 Insurance Name Medicaid,Blue Cross/Blue Shield Medical Diagnosis S/p left total hip arthroplasty 08/24/23 Presence of left artificial hip joint Treating Diagnosis Aftercare following joint replacement Muscle weakness Difficulty walking Left hip pain/stiffness Referring MD Tyrone Moore Subjective Subjective Regarding the left hip, his pain is sharp, intermittent and relieves with rest. The pain has gotten worse now that he has his right hip replaced . The patient has tried ice, Tylenol/oral NSAIDs, rest, activity modification, physical therapy, home exercise plan all with minimal and non-lasting relief. His pain is worse with stairs, therapy, walking. -Dr. Moore, 08/09/23, confirmed by patient Patient presents to physical therapy 2.5 weeks s/p left total hip arthroplasty with anterior approach. Pt had to cancel initial evaluation due to illness. Overall, he feels like this hip has been going better than his right since surgery in terms of recovery. Pt is managing his pain w/ Suboxone as well as OTC pain meds as needed and is now off oxycodone (history of opiod/ meth abuse, none since 2021). Pt reports he doesn't have much pain, sometimes will feel it momentarily in the buttocks. Please see previous post-op note from R hip surgery for complete home set up. Pt's significant other, Chandrika, was available and assisting as needed for the first week after surgery. No stairs to navigate in his one- level home other than one step to get into bed, which goes well. Primary functional limitations/aggravating factors include performing yardwork, stairs, picking up objects from the ground, squatting, playing hacky sack, standing up from a chair, sleeping, tying his shoes/ dressing, and getting in and out of the car/bed. Easing factors include rest. He reports he was using the FWW and weaned to no gait aid after a week or so. Sleeping is going well, most comfortable on his back. No longer icing and elevating. He reports he has been pretty active and moving around/going on walks, but no formal exercises. Goals are return to gym, hacky sack, and yardwork as well as general ADLs without pain. Pain Comments 3/10 at worst 0/10 at rest/current Date of Last Physician Visit 09/01/23 Date of Surgery (If applicable) 08/24/23 Current Work Status Unemployed Occupation Unemployed Worked in construction prior Precautions Treatment Precautions/Contraindications R hip arthroplasty on 06/27/23 anterior approach, history of substance abuse No excessive hip extension ROM left Weight Bearing Status Weight Bear as Tolerated Objective Other/Pertinent Objective Knee ROM L 0-0-128 R 0-0-130 Hip ROM Right is WNL, left is mildly limited into flexion and moderately limited into ER/IR (abduction WNL) as expected. Strength: Quad set: fair, mild to moderate glute co-contraction SLR: independent without quad lag Ankle dorsiflexion: 5/5 Ankle plantarflexion: able to perform DL heel raise MMT right hip: 5/5 for hip flexion, knee flexion/ extension. Left: not tested Gait/balance: Ambulates with mildly decreased stance time on left, no AD. Mildly decreased toe off. Even weight distribution w/ STS, able to perform without use of UEs. SL balance: Not assessed this visit. Palpation/joint mobility: Mild tenderness to palpation around incision/anterolateral thigh. Swelling/observation: Mild swelling noted in christina- incisional area. Incision appears clean and well-healing . Mild bruising of calf, but no redness/swelling/tenderness of this area noted. Tx: Education provided on findings of examination, plan of care, frequency, duration and goals . Patient verbalizes understanding and agrees with plan of care. Patient instructed in initial home exercise program listed below with verbal and tactile cues provided for form. Patient demonstrates understanding with handout provided. Education: -Post-op goals (reduce swelling, pain, normalize gait , graded return to walking/ activities) and precautions Patient was instructed in the following exercises to improve strength, tissue tolerance, and/or mobility with verbal/ tactile cues as needed: -LAQ, 1 x 10 -Quad sets, 1 x 15 w/ 3-sec holds -Ankle pumps 1 x 10 -Standing hip abduction w/ counter support, 1 x 15 reps left, 1 x 10 reps right -Hooklying glute sets, 1 x 10 reps -Standing heel raises, 1 x 10 reps at counter Access Code: [email or web address] URL: [email or web address] Date: 09/13/2023 Prepared by: Hoda Rivera Program Notes Bridge- mini lift.? Exercises - Sit to Stand Without Arm Support - 1 x daily - 4 x weekly - 2-3 sets - 10 reps - Standing March with Counter Support - 1 x daily - 4 x weekly - 2-3 sets - 10 reps - Beginner Bridge - 1 x daily - 4 x weekly - 2-3 sets - 10 reps - mini - Small Range Straight Leg Raise - 1 x daily - 7 x weekly - 3 sets - 10 reps Functional Test Performed & Score LEFS: 39/80 = 48.75% Assessment Assessment/Impression Patient is a 58 -year-old male who presents to physical therapy for evaluation 2.5 weeks s/p left total hip arthroplasty on 08/24/23. Upon assessment, patient demonstrates decreased hip ROM , impaired gait, impaired balance, decreased hip strength, and swelling. All findings as expected. These limitations lead to difficulties with performing yardwork, stairs, squatting, playing hacky sack, standing up from a chair, sleeping, tying his shoes/dressing, picking up objects from the ground, and getting in and out of the car/bed. Pt noting no pain with exercises this visit other than mildly with SLR. Patient would benefit from skilled PT to address impairments stated above in order to perform all functional and recreational activities without significant difficulty or discomfort. Primary Functional Limitations performing yardwork, stairs, squatting, playing hacky sack, standing up from a chair, sleeping, tying his shoes/ dressing, and getting in and out of the car/bed. Plan of Care Rehabilitation Potential Excellent Physical Therapy Goals In 4-6 visits: 1. Pt will be able to lift lower extremity in/out of bed or car without pain or physical assistance to improve ease of car or supine<>sit transfer. 2. Pt will stand/walk up to 20 minutes without use of AD or report of increased hip pain. 3. Pt will perform 5x STS with improved form and no pain for improved ease of transfers. GOAL MET In 8-10 visits: 1. Pt will be able to navigate flight of 10 steps reciprocally with symmetric WB and assistive device for improved navigation of household. 2. Patient will ambulate with improved mechanics and no pain without AD or with least restrictive assistive device > 150' for improved community mobility. 3. Pt will resume walking for exercise, gathering groceries, and performing errands independently. 4. Pt will tie his shoes/mixing picker tender object up from the ground with improved ease for better ability to perform ADLs. Coordination/Communication With Referral Source Treatment Plan/Direct Interventions Electrical Stimulation,Gait Training,Ice/Cold/ Vasopneumatic,Joint Mobilization,Manual Therapy, Neuromuscular Re-ed,Self-Care/ Home Management,Therapeutic Activities,Therapeutic Exercises Frequency/Duration 1x/week for 8-10 visits Patient Will Be Discharged From Therapy Completion of LTG(s), Independent w/HEP, Independently Progressing Evaluation Billing Untimed Code Treatment Minutes 15 Complexity Low Certification Information Physician Comment/Change : Physician NPI Number #
== END 2023-10-31 12:50 | disposition home or self-care (01) ==
PROVIDERS: PCP Family Medicine; Visit Provider Orthopaedic Surgery Sports Medicine
DX: M16.12 Unilateral primary osteoarthritis, left hip (principal); Z96.642 Presence of left artificial hip joint; M62.81 Muscle weakness (generalized); R26.2 Difficulty in walking, not elsewhere classified; M25.552 Pain in left hip; M25.652 Stiffness of left hip, not elsewhere classified; Z47.1 Aftercare following joint replacement surgery; Z51.89 Encounter for other specified aftercare
CPT/HCPCS: 97110; 97112; 97161; 97530

== ENCOUNTER 2024-06-05 14:00 | Outpatient (RCR) | payer BC, SELFPAY | END 2024-09-26 12:02 | disposition home or self-care (01) | PROVIDERS: PCP Family Medicine; Visit Provider Orthopaedic Surgery Sports Medicine | DX: S76.012A Strain of muscle, fascia and tendon of left hip, initial encounter (principal); M25.552 Pain in left hip; M62.81 Muscle weakness (generalized); Z51.89 Encounter for other specified aftercare | CPT/HCPCS: 97110; 97140; 97161 ==

== ENCOUNTER 2024-12-18 08:00 | Outpatient (CLI) | payer BC, SELFPAY | END 2024-12-18 08:01 | disposition home or self-care (01) | LOC: NFLDREF 12-20 01:28 | PROVIDERS: PCP Family Medicine; Referring Provider Family Medicine; Visit Provider Family Medicine | DX: E78.5 Hyperlipidemia, unspecified (principal) | CPT/HCPCS: 80053; 80061 ==

== ENCOUNTER 2025-02-27 15:30 | Outpatient (RCR) | payer BC, SELFPAY ==
--- NOTE | 2025-01-07 16:27 | PT.OPEX ---
PT Frakes Outpatient Eval PT [facility] Outpatient Eval Start: 01/07/25 13:02 Freq: Status: Active Protocol: Document 01/07/25 14:22 MICHAEL (Rec: 01/07/25 16:25 [facility] [id number]) E-signed By Amy Gooden PT Physical Therapy Outpatient Evaluation Insurance Information Recert Due Date 04/06/25 Insurance Name Medicaid,Blue Cross/Blue Shield Insurance Information/Comments [place] Medical Diagnosis RIGHT SHOULDER DYSKINESIS Treating Diagnosis RIGHT SHOULDER PAIN RIGHT SHOULDER Referring MD WADSWORTH Subjective Preferred Name MAGDIEL Subjective MAGDIEL REPORTS THAT IN THE LAST 4-6 WEEKS HE HAS BEEN TRYING TO INCREASE THE WEIGHT HE IS LIFTING IN THE GYM BUT HAS BEEN EXPERIENCED RIGHT SHOULDER PAIN;ESPECIALLY WITH BENCH, INCLINE, AND OH PRESS. HE HAS NOT FELT THE PAIN DURING THE ACTIVITY BUT RATHER AFTERWARD CAUSING ACHING AT NIGHT. HE RECEIVED A CORTISONE INJECTION ON 12/11/24 AND FEELS THAT HIS SYMPTOMS HAVE GREATLY IMPROVED. 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 HE REPORTS A CLAVICLE FRACTURE WITH DEFORMITY WHEN HE WAS A TEENAGER. ADDITIONALLY , HE HAS ~8CM LIPOMA AT HIS LATERAL INFERIOR SCAPULAR BORDER WHICH HE FEELS MAY BE AFFECTING HOW HIS SCAPULA MOVES. HE HAS SEVERAL OTHER LIPOMAS BUT NONE THAT ARE PARTICULARLY PROBLEMATIC. HE IS HERE TO WORK ON THE WINGING SCAPULAR THAT HIS ORTHO NOTED IN HIS VISIT WELL BE ABLE TO LIFT FOR STRENGTH GAIN AT THE [facility] WITH HIS NEPHEW. Pain Comments 11/05 Date of Last Physician Visit 12/11/24 Current Work Status Unemployed Precautions Treatment Precautions/Contraindications PMHX: RIGHT TRAUMATIC TEAR FROM FALLING OFF LADDER WITH RTC REPAIR, SAD, DCE, DEBRIDEMENT 10/25/2022, R/L CAMERON 06/20 R L, H/O CLAVICLE FRACTURE, H/O AC SEPERATION Therapy Limitations/Systems Review Other Medical Problem Objective Other/Pertinent Objective CERVICAL ROM WNL SHOULDER AROM WNL NECK/SHOULDER MMT: 5/5 EXCEPT SUPRASPINATUS 5-/5 SPECIAL TESTS: IMPINGEMENT: MARTINEZ-CHRISTIANO (-) NEER (-) PAINFUL ARC (-) TENDONDITIS: SPEEDS (-) YERFoodscovery'S JOBES (EMPTYCAN) (+) FULL CAN (-) LIFT OFF (-) HORN BLOWER (-) DROP ARM (-) LABRAL TEAR/INSTABILITY/AC SCARF TEST PAXINO (-) APPREHENSION (-) HOLLINGSWORTH'S : (-) JOINT MOBILITY/PALPATION : MIN RIGHT SCAPULAR WINGING TX: WALL FACING SNOW SB TB (BLUE) ROW X 15 HOLD 2-3 SEC STDG TB (BLUE) S'EXT X 15 HOLD 2-3 SEC STDG TB (GREEN) S'IR X 20 STDG PEC STRETCH X 30 SEC STDG BICEPS STRETCH PRONE ON BENCH I, T, Y X 10 HOLD 3 SEC Assessment Assessment/Impression PATIENT IS A [address] WADSWORTH TO EVAL AND TREAT RIGHT SHOULDER SCAPULAR DYSKINESIS, SHOULDER PAIN, GLENOID CHONDROMALACIA. PATIENT DEMONSTRATES SIGNS AND SYMPTOMS CONSISTENT WITH RIGHT SHOULDER SCAPULAR DYSKINESIS, SHOULDER PAIN, GLENOID CHONDROMALACIA CONTRIBUTING TO THEIR FUNCTIONAL IMPAIRMENTS OF PAIN WITH LIFTING OH. PATIENT DESCRIBES THE FOLLOWING TRIGGERS BENCH PRESS , OH PRESS, INCLINE PRESS, PUSH UP WHICH ARE ALLEVIATED BY REST, ICE, CORTISONE INJECTION. PATIENT HAS NOTABLE OBJECTIVE FINDING INCLUDING MIN SCAPULAR WINGING, LIPOMA LATERAL INFERIOR BORDER WHICH ALL ARE CONTRIBUTING TO THE CLINICAL IMPRESSION. PATIENT IS A GOOD CANDIDATE FOR SKILLED PHYSICAL THERAPY TO ADDRESS AFOREMENTIONED DEFICITS ABOVE IN ORDER TO RETURN TO HIS ASYMPTOMATIC STATUS AND RETURN TO UNRESTRICTED MVMTS. INTERVENTION IS NECESSARY BY WAY OF THERAPEUTIC EXERCISE, MANUAL THERAPY, NEUROMUSCULAR RE-EDUCATION, STABILIZATION/ PROPRIOCEPTION, MODALITIES FOR SYMPTOM MGMT, PATIENT EDUCATION, DRY NEEDLING PLEASE REFER TO APPROPRIATE SECTION WITHIN THIS EVALUATION FOR COMPLETE LIST OF GOALS AND PLAN OF CARE. DISCHARGE PLAN AND CRITERIA IS FOR PATIENT TO ACHIEVE THE GOALS LISTED BELOW OR UNTIL MAX POTENTIAL MET. PATIENT VERBALIZED UNDERSTANDING AND AGREEABLE TO POC, FREQ, AND GOALS ESTABLISHED. Primary Functional Limitations LIFTING OH, ANTERIORLY Plan of Care Rehabilitation Potential Good Physical Therapy Goals IN 6-12 VISITS: 1. DECREASE SHOULDER PAIN TO < /2-3/10 WITH DAILY ACTIVITIES AND WITH THE PROGRESSION OF HIS HEP OVER THE NEXT 4 WEEKS. 2. DEMONSTRATE PAIN FREE AROM OVER THE NEXT 4-6 WEEKS DURING DAILY ACTIVITIES WITHOUT FLARE UPS OF SYMPTOMS. 3. PATIENT WILL VERBALIZED UNDERSTANDING OF POSTURING AND BODY MECHANICS IT RELATES TO DECREASING STRESS, IMPROVED SHOULDER MECHANICS, AND DECREASED SYMPTOMS. 4.PATIENT WILL DEMONSTRATES IMPROVED STRENGTH TO FACILITATE RETURN TO DAILY ACTIVITIES WITH LESS SYMPTOMS AND DECREASED OPPORTUNITIES FOR FLARE UP OF PAIN 5. PATIENT WILL BE INDEPENDENT WITH HIS INDIVIDUALIZED AND COMPREHENSIVE HEP WITHIN THE NEXT 6-12 WEEKS FOR PROGRESSION TWD ABOVE MENTION GOALS, CONTINUED MGMT OF SYMPTOMS, AND ONGOING SELF IMPROVEMENTS IN POSTURING/ STRENGTH/STABILIZATION. Coordination/Communication With Referral Source Treatment Plan/Direct Interventions Ice/Cold/Vasopneumatic,Joint Mobilization,Manual Therapy, Neuromuscular Re-ed,Self-Care/ Home Management,Therapeutic Activities,Therapeutic Exercises Frequency/Duration 1X/WK Patient Will Be Discharged From Therapy Completion of LTG(s), Independently Progressing Evaluation Billing Untimed Code Treatment Minutes 20 PT Eval No Charge No Complexity Low Certification Information Initial Certification Date 01/07/25 Ending Certification Date 04/06/25 Provider Signature Required Yes Provider Signature Shows Agreement With POC & Medical Necessity Physician NPI Number Write NPI# Here Physician Comment/Change : Physician Signature & Date Requested Please Sign/Date Here
== END 2025-03-20 14:41 | disposition home or self-care (01) ==
PROVIDERS: PCP Family Medicine; Visit Provider Orthopaedic Surgery Sports Medicine
DX: M67.911 Unspecified disorder of synovium and tendon, right shoulder (principal); M25.311 Other instability, right shoulder; M25.511 Pain in right shoulder; Z98.890 Other specified postprocedural states; Z47.89 Encounter for other orthopedic aftercare
CPT/HCPCS: 97110; 97140; 97161